=== PATIENT | female | born 1955 | race Caucasian/White ===

== ENCOUNTER 2016-06-25 10:20 | Observation (INO) | payer MEDICAID, MEDICARE ==
[2016-06-25] VITALS (7 sets, daily range): BP systolic 109–137; BP diastolic 66–75; PULSE 49–66; RESP 14–20; O2SAT 90–100
[~2016-06-25] VITALS: Ht 160 cm; Wt 73.0 kg
[~2016-06-25 10:20] MED LIST: ACET1TAB12 PO; ALBU2.5V4 INHALATION; ALBU8.5H2 INHALATION; ALBU90AE IH; ASPI-973 PO; CARI350T PO; CHOL200047 PO; DIAZ5TAB3 PO; LEVO100T6 PO; LIOT5TAB6 PO; NITR4.1S2 TRANSLING; PARO40TA47 PO
[2016-06-25 11:35] LABS: BASOPHILS % (AUTO) 0.6 % (0-3); MONOCYTES % (AUTO) 7.9 % (4-12); Mean Corpuscular Hemoglobin 32.4 pg (27.0-35.0); Mean Corpuscular Volume 95.5 fL (81-100); Platelet Count 349 bil/L (150-400)
--- NOTE | 2016-06-25 11:54 | DRSVH ---
PROCEDURE: X-RAY CHEST ONE VIEW, PORTABLE ([id number]) INDICATIONS: CHEST PAIN TECHNIQUE: One view of the chest was acquired. COMPARISON: [facility], CR, XR CHEST 2VW, 05/07/2016, 11:28. [facility], CR , XR CHEST 1VW (PORTABLE), 03/02/2015, 10:59. FINDINGS: Surgical changes and devices: Sternotomy wires, presumed prior CABG.. Lungs and pleura: No pleural effusions or pneumothorax. Lungs are clear. Mediastinum: Mediastinal contours appear normal. Heart size is normal. Bones and chest wall: No suspicious bony lesions. Overlying soft tissues appear unremarkable. IMPRESSION: Prior CABG, no trauma found, source of chest pain is not seen. Dictated by: Jamar Wei M.D. on 06/25/2016 at 11:52 Approved by: Jamar Wei M.D. on 06/25/2016 at 11:53
[2016-06-25 12:39] LABS: TROPONIN T 0.01 ug/L (0.0-0.011)
[2016-06-25 12:50] LABS: Magnesium 2.3 mg/dL (1.6-2.6)
--- NOTE | 2016-06-25 13:00 | ED.REPORT ---
HPI-Chest Pain 40 and Over Date of Service Jun 25, 2016 ED Provider: Aliya Hartman MD Patient is a 60 year old female who presents to the ED due to chest pain onset 0830 this morning. Patient was walking up the stairs when she began experiencing middle chest pain. The episode lasted 5 minutes with associated tingling in her fingertips, and excessive diaphoresis after the pain dissipated. She does not currently report any pain or symptoms. She had a double bypass in January of 2015 and was due to have a stress test in a few months. The stress test was moved forward to later this week due to intermittent chest pain over the past few weeks. The patient recently had bronchitis and used a steroid inhaler this morning to help with her cough. Her network and threat support specialist is Dr. Yunior Darling and Dr. Durand is her PCP. Nursing Notes Stated Complaint: CHEST PAIN Chief Complaint: Chest Pain Nursing Notes Reviewed: Yes Allergies: Coded Allergies: adhesive (Verified Allergy, Severe, PROBLEM W/ ADHESIVE ON SURGICAL DRAPE DURING 2010 SURGERY, 06/25/16) chlorhexidine (Unverified Allergy, Mild, 06/25/16) BURNING RASH Scheduled Aspirin (Aspirin) 81 Mg Tablet 162 MG PO DAILY Atorvastatin Calcium (Atorvastatin Calcium) 40 Mg Tablet 40 MG PO HS Fluticasone Propionate (Flovent HFA 220 mcg) 12 Gm Aer.w.adap 2 PUFFS INHALATION BID Levothyroxine (Levothyroxine) 100 Mcg Tablet 100 MCG PO DAILY Liothyronine Sodium (Cytomel) 5 Mcg Tablet 5 MCG PO DAILY Metoprolol Tartrate (Metoprolol Tartrate) 25 Mg Tablet 12.5 MG PO BID Paroxetine (Paxil) 40 Mg Tablet 40 MG PO DAILY Tiotropium [place] (Spiriva) 18 Mcg Cap.w.dev 1 CAPSULE INHALATION DAILY Scheduled PRN Acetaminophen/Codeine 300-30mg (Tylenol/Codeine #3) 1 Each Tablet 1 TABLET PO QID PRN PRN For Pain Albuterol HFA (Proair HFA) 8.5 Gm Hfa.aer.ad 2 PUFFS INHALATION QID PRN PRN For Shortness of Breath Cyclobenzaprine (Cyclobenzaprine) 10 Mg Tablet 10 MG PO TID PRN PRN For Spasm Diazepam (Diazepam) 5 Mg Tablet 5 MG PO BID PRN PRN For Anxiety Nitroglycerin SL (Nitroglycerin SL) 0.4 Mg Tab.subl 0.4 MG PO Q5MIN PRN PRN For Chest Pain General Time Seen by MD: 12:57 Chief Complaint Chest pain Hx Obtained From: Patient Sudden in Onset?: Yes Onset Occurred: 5 - 8 hours ago Symptom Duration: Since onset Location: : Chest left Radiation: : Arm left Severity: Current: Mild Associated with: Reports: Diaphoresis Recent Healthcare: Recent doctor visit, Previous surgery Similar Sx Previous: Yes Past Medical History Past Medical History Notes: DIAGNOSTIC CARDIAC CATHETERIZATION SERVICE DATE: 12/21/2014 ANGIOGRAPHIC FINDINGS: 1. Mild calcification is noted on fluoroscopy. 2. Left main: No significant disease. 3. LAD: Mild diffuse disease. In the mid segment there is a tight, 80% lesion. 4. Circumflex nondominant. Proximally at the takeoff of the first major obtuse marginal branch there is a haziness suggestive of heavy calcification. No critical stenosis is noted. 5. Epicardial, as well as septal, collaterals fill the right coronary artery. 6. Right coronary artery is totally occluded past the take-off of RV branch. 7. It appears to be a flush occlusion. 8. Left ventriculogram revealed overall preserved contractility with ejection fraction of around 70%. LVEDP was 18. There was no gradient upon pullback. Past Medical History Asthama Arthritis Depression Chronic back pain Past Surgical History Cardiac Bypass on February 05, 2015. [facility]. back Surgery. Right femoral stent. Reports: Tubal ligation Smoking History Current Every Day Smoker Social History Other Social History: Good social support, Local resident Ambulatory Status Independent Review of Systems Cardiovascular: Reports: Chest pain Skin: Reports Diaphoresis Neurologic: Reports: Numbness (and tingling in fingers ) Complete sys rev & neg: except as marked. Physical Exam Initial Vital Signs Vital Signs (First) Date Time Temp Pulse Resp B/P Pulse Ox O2 Delivery O2 Flow Rate FiO2 06/25/16 10:38 36.4 49 15 120/71 97 Room Air Initial VS: Reviewed Head / Eyes: Atraumatic, Normocephalic, PERRL ENT: Mucous membranes moist, Conjunctiva normal, No scleral icterus Neck: Supple, Non-tender, Full range of motion Extremities: Vascular intact, Neuro intact, No swelling, No tenderness Skin: Warm, Dry, No cyanosis Neurologic: Alert, Oriented, Nonfocal Psychiatric: Mood/affect normal, Behavior normal, Normal thought content General/Constitutional: Awake, Alert, No acute distress, Well appearing Wheezing / Retractions: Positive: Wheezing moderate course wheezing on both sides, more on right then left Cardiovascular: Heart rate NL, Regular rhythm, Heart sounds NL, No gallop, No murmurs, No rubs Abdomen: Atraumatic, Soft, Non-tender, No guarding, No rebound, BS normoactive Interpretation & Diagnostics Lab Results Interpretation Result Diagram: 06/25/16 1129 06/25/16 1129 Test 06/25/16 11:29 White Blood Count 7.1th/mm3 (3.8-10.1) Red Blood Count 3.98mil/mm3 (3.90-5.20) Hemoglobin 12.9g/dL (12.0-15.6) Hematocrit 38.0% (35.0-46.0) Mean Corpuscular Volume 95.5fL (81-100) Mean Corpuscular Hemoglobin 32.4pg (27.0-35.0) Mean Corpuscular Hemoglobin Concent 33.9% (32.0-37.0) Red Cell Distribution Width 18.4% (12.3-15.4) Platelet Count 349bil/L (150-400) Neutrophils (%) (Auto) 63.0% (40-74) Lymphocytes (%) (Auto) 25.8% (14-46) Monocytes (%) (Auto) 7.9% (4-12) Eosinophils (%) (Auto) 2.0% (0-5) Basophils (%) (Auto) 0.6% (0-3) Sodium Level 137mEq/L (134-144) Potassium Level 4.7mEq/L (3.5-5.2) Chloride Level 101mEq/L (97-108) Carbon Dioxide Level 22mmol/L (18-29) Blood Urea Nitrogen 10mg/dL (6-24) Creatinine 0.67mg/dL (0.57-1.00) Estimat Glomerular Filtration Rate 129mL/min (>59) Glucose Level 93mg/dL (60-99) Calcium Level 8.7mg/dL (8.5-10.1) Magnesium Level 2.3mg/dL (1.6-2.6) Total Bilirubin 0.5mg/dL (0.0-1.2) Aspartate Amino Transf (AST/SGOT) 26U/L (0-50) Alanine Aminotransferase (ALT/SGPT) 15U/L (0-32) Alkaline Phosphatase 62U/L (25-165) Troponin T 0.010ug/L (0.0-0.011) Total Protein 6.6g/dL (6.4-8.4) Albumin 3.9g/dL (3.4-5.0) ECG Interpretation Time: 11:01 Interpreted by: ED physician Normal ECG Interpretation: No acute ischemic changes Rhythm / Conduction: Bradycardia (49) Re-Eval/Medical Decision Med Decision/Clinical Course Increasing chest pain over the last 2 weeks in the setting of recent 2 vessel bypass. This morning with a severe episode associated with profuse diaphoresis. Initial labs are unremarkable and no evidence of STEMI. Discussed with cardiology. Opted for admission, cardiac rule out. if negative will need nuclear stress test tomorrow Time of Eval: 13:24 Patient Status: Condition unchanged Re-Evaluation/Progress Note: Patient informed of plan for admission. Patient requests anxiety medication. Pt understands and agrees with plan. All questions addressed. Consultation #1: Referral / Consult Name: Meghana Darling MD Consulted With: Cardiology Call Returned at: 13:23 Environmental Programs Specialist: Agrees with eval, Agrees with plan Note: Dr. Darling recommends admission as she rules out a nuclear stress test tomorrow. Consultation #2: Referral / Consult Name: Awais Anglin MD Consulted With: Hospitalist Call Returned at: 13:36 Environmental Programs Specialist: Agrees with eval, Agrees with plan Note: Case discussed. Counseled Regarding: Diagnosis, Lab results, Need for admission Discharge & Departure Disposition: ADMITTED TO HOSPITAL Discharge Condition All VS Reviewed: Yes Condition: Stable Referrals: Meghana Darling MD (PCP) Pepito Attestation Portion of this note were transcribed by Riccardo Rucker. I, Dr. Hartman, personally performed the history, physical exam, and medical decision-making: I reviewed and confirmed the accuracy for the information in the transcribed note. Signed by: pepito Levine, 06/25/16 1430 Aliya Hartman MD Jun 25, 2016 13:00 RICCARDO RUCKER Jun 25, 2016 13:31
[2016-06-25] MEDS ORDERED: HYDROcodone-APAP 5-325 mg Tablet PO ONE (13:30)
[2016-06-25] MEDS ORDERED: CYCL10TA9 PO (14:13)
[2016-06-25] MEDS ORDERED: FLUT12AE10 INHALATION (14:13)
[2016-06-25] MEDS ORDERED: ATOR40TA69 PO (14:13)
[2016-06-25] MEDS ORDERED: METO25TA6 PO (14:13)
[2016-06-25] MEDS ORDERED: TIOT18CA3 INHALATION (14:13)
[2016-06-25] MEDS ORDERED: NITR0.4T6 PO (14:15)
[2016-06-25] MEDS ORDERED: Ondansetron 2 mg/mL 2 mL Inj IVPUSH PRN (15:55)
[2016-06-25] MEDS ORDERED: Senna-Docusate 8.6-50 mg Tablet PO PRN (15:55)
[2016-06-25] MEDS ORDERED: Polyethylene Glycol (PEG) 17 Gm Powder PO PRN (15:55)
[2016-06-25] MEDS ORDERED: Alum-Mag Hydrox-Simeth 30 mL Suspension PO PRN (15:55)
[2016-06-25] MEDS: Sodium Chloride LOK Flush 10 mL Syringe IVFLUSH SCH (16:30)
[2016-06-25] MEDS: 0.9% Sodium Chloride 1,000 ML IV SCH (17:05)
--- NOTE | 2016-06-25 17:31 | PCM.HPMED ---
Subjective Date of Service Jun 25, 2016 Primary Provider: Admitting Physician: Awais Anglin MD Primary Care Physician: Meghana Darling MD Attending Physician: Awais Anglin MD Chief Complaint: Chest pain History of Present Illness: Patient is a 60 year old female with history of coronary artery disease s/p 2 vessel CABG who presented with chest pain onset 0830 this morning. Patient was walking up the stairs after walking her dog when she began experiencing middle chest pain. She described the episode as 5 minutes of dull pain with pressure in the center of her chest, nonradiating, with associated tingling in her fingertips, and excessive diaphoresis after the pain dissipated. She reports having shortness of breath on exertion, after walking about 1 block, as well as recent coughing and wheezing, as she recently had bronchitis and used a steroid inhaler this morning to help with her cough. She does not currently report any pain or symptoms on admission. She denies orthopnea or paroxysmal nocturnal dyspnea. She was due to have a stress test a few months from now, but states it was moved to today because of her chest pain. She went to the stress test, but upon arriving she described her chest pain to the staff and was sent to the ED. The patient Her oil well shooter is Dr. Yunior Darling and Dr. Durand is her PCP. In the ED, pulse was 49, other vitals were normal. CBC and CMP were normal. Troponin was normal. CXR was negative for acute process. EKG showed sinus bradycardia. Review of Systems: Comprehensive review of systems conducted and was negative except for the pertinent positives listed above. Allergies Coded Allergies: adhesive (Verified Allergy, Severe, PROBLEM W/ ADHESIVE ON SURGICAL DRAPE DURING 2010 SURGERY, 06/25/16) chlorhexidine (Unverified Allergy, Mild, 06/25/16) BURNING RASH Home Medications APAP/Codeine 300/30 mg PO QID PRN Albuterol inhaler Aspirin 162 mg daily Atorvastatin 40 mg qhs Cyclobenzaprine 10 mg TID PRN Diazepam 5 mg BID PRN Flovent inhaler Levothyroxine 100 mcg daily Liothyronine 5 mcg daily Metoprolol tartrate 12.5 mg BID Nitroglycerin 0.4 mg SL q5min PRN Paroxetine 40 mg daily Spiriva inhaler PMH Coronary artery disease with 2 vessel CABG COPD Arthritis Depression Chronic back pain Surgical History 2 vessel coronary bypass on February 05, 2015. [place]. Multiple back surgeries Right femoral stent. Tubal ligation Family History Mother - of metastatic brain cancer Father - of esophageal cancer Grandfather - Diabetes mellitus No known family history of CAD, HI, stroke, CHF Social History Hx Alcohol Use: No (RARE) Hx Substance Use: No Hx Tobacco Use: No Smoking Status: Former Smoker (Quit 1 month ago) Exam Vital Signs Vital Sign - Last Date Time Temp Pulse Resp B/P Pulse Ox O2 Delivery O2 Flow Rate FiO2 06/25/16 15:39 52 06/25/16 15:38 36.8 16 137/71 97 Room Air Exam General: Alert, Oriented X3, Cooperative, No Acute Distress Head: Normocephalic, atraumatic. External ears normal. Eyes: PERRLA, EOMI. Anicteric sclerae. Mouth: Mouth Normal, Mucous Membranes Moist/[place] Neck: Neck supple with full range of motion. Chest & Lungs: Wheezes and rhonchi bilaterally, R>L Cardiovascular: Regular Rate/Rhythm, Normal S1, Normal S2, No Murmurs/Rubs/ Gallops Abdomen: Non-tender, Non-distended, No masses, Normoactive bowel tones, Soft Musculoskeletal: Normal Range of Motion Extremities: No cyanosis/clubbing/edema bilaterally Neurological: Grossly Neurologically Intact, Normal Speech Lab and Diagnostics Result Diagram: 06/25/16 1129 06/25/16 1129 Assessment & Plan Patient is a 60 year old female with history of coronary artery disease s/p 2 vessel CABG who presented with chest pain onset 0830 this morning. 1. Acute chest pain. Present on admission. - Pt reports acute chest pain on exertion, as well as dyspnea on exertion. Given her strong medical history for coronary artery disease, suspicion is high for angina. CXR was negative for pneumonia, and her history is more suspicious for cardiac chest pain rather than pleuritic chest pain. Troponin negative x1. - Trend troponin x3 overnight. - Monitor on telemetry - Continue home ASA, metoprolol, atorvastatin. - Plan for MIBI tomorrow if troponin negative and no events overnight. - NPO after midnight. - Nitroglycerin SL PRN chest pain 2. Acute bronchitis. Present on admission. - Pt states she has been getting over an episode of acute bronchitis, having completed a course of prednisone and a Z-pack. She has a stated history of mild COPD, diagnosed by PFTs in [place]. She is noted to still have coughing and wheezing, and wheezes were noted on exam. - Albuterol neb q6h PRN 3. Depression, chronic. - Continue home diazepam and paroxetine 4. Hypothyroidism, chronic. - Continue home levothyroxine and liothyronine 5. Chronic back pain - Continue home APAP/Codeine, cyclobenzaprine - Bowel regimen as needed - Antiemetic as needed OBSERVATION: Patient is admitted under observation status with expected length of stay less than 2 midnights due to severity of presenting symptoms, risk of adverse event, and complexity of treatment plan. Attending Statement The patient was seen and examined together with Dr. Bolanos on 06/25/2016 and I agree with the history, exam and plan as outlined in the note above. . Alberto Bolanos Jun 25, 2016 16:06 Awais Anglin MD Jun 26, 2016 07:45
--- NOTE | 2016-06-25 19:23 | NUR ---
Arrived to Unit Pt arrived to PCC room 2004 at ~1520, VSS on RA, denied pain, tele sinus monica in the 50s, planning for stress test in am per resident team MD, Pt made NPO after midnight with a no caffeine diet, Pt made aware, oncoming NOC RN made aware.
[2016-06-25] MEDS: Codeine-APAP 30-300 mg Tablet PO PRN (23:31)
[2016-06-26] VITALS (7 sets, daily range): BP systolic 107–130; BP diastolic 60–70; PULSE 47–61; RESP 12–20; O2SAT 90–99
[2016-06-26] MEDS: Sodium Chloride LOK Flush 10 mL Syringe IVFLUSH SCH ×3 (00:30→15:57)
[2016-06-26 03:02] LABS: BASOPHILS % (AUTO) 0.3 % (0-3); EOSINOPHILS % (AUTO) 3.5 % (0-5); MONOCYTES % (AUTO) 8.3 % (4-12); Mean Corpuscular Hemoglobin 31.7 pg (27.0-35.0); Mean Corpuscular Volume 95.4 fL (81-100); NEUTROPHILS % (AUTO) 46.9 % (40-74); Platelet Count 300 bil/L (150-400)
[2016-06-26] MEDS: 0.9% Sodium Chloride 1,000 ML IV SCH ×2 (05:00→16:11)
--- NOTE | 2016-06-26 05:01 | NUR ---
Pain Pt has chronic back pain and stated this pain at 6/10 x1 this shift. Administered 1 table Flexeril as well as 1 tab Tylenol with codeine and effective. Pt had no more episodes of CP and has been NPO since 0000 for stress test. VSS and Tele SB/R50's 60's.
[2016-06-26] MEDS ORDERED: Albuterol 1.25 mg/3 mL Inhalation Solution NEB PRN (07:55)
[2016-06-26] MEDS ORDERED: PARoxetine 20 mg Tablet PO SCH (08:30)
--- NOTE | 2016-06-26 10:21 | NUR ---
Case Management: YOLY delivered and explained. Signed original placed in chart. Copy left at bedside. Debi Brown RN
--- NOTE | 2016-06-26 10:24 | NUR ---
Social Work: Initial Assessment D: Per EMR review, pt is a 60 year old female admitted for chest pain. pt is Medicare with [employer] supplement. PCP is Dr. Richard Durand MD. NOK Is Debbi Britt, dtr, . Advanced directives completed but not on file- INFORMATICS APPLICATION ANALYST requested pt have family provide copy. Readmit score is moderate, 3/8. INFORMATICS APPLICATION ANALYST met with pt at bedside. Sw role and contact information provided. See initial assessment. Pt lives in an apartment with her son and grandson in [place]. Pt is I with ADLs and uses no DME. Pt has 16 steps to enter her home. She reports not issues navigating stairs until yesterday when she experienced chest pain. Pt states she has never had HH or SKilled rehab. Pt denies any anticipated d/c needs and states she has been I during admission. Pt discussed in am rounds. Anticipate pt may be ready for discharge home today pending stress test. A: pt who is I at baseline. P: Anticipate pt to discharge home via POV (son or daughter) once medically stable; INFORMATICS APPLICATION ANALYST to continue to follow. CORAZON Darden Addendum: 06/26/16 at 1028 by ELISA FERRER Amended: Links added.
[2016-06-26] MEDS: Codeine-APAP 30-300 mg Tablet PO PRN (11:38)
--- NOTE | 2016-06-26 16:25 | DRSVH ---
PROCEDURE: 1 DAY PHARMACOLOGICAL STRESS TEST Rest and pharmacological stress myocardial perfusion SPECT with gated imaging and ejection fraction RADIOPHARMACEUTICAL: 8.70 mCi Tc-99m tetrafosmin IV at rest and 25.6 mCi Tc-99m tetrafosmin IV at pea k effect of pharmacological stress. A gut-yjz-nlrylosf was performed. INDICATIONS: CHEST PAIN/DYSPNEA ON EXERTION. TECHNIQUE: Radiopharmaceutical was injected at peak stress test, and also at rest. SPECT images wer e obtained. SPECT myocardial perfusion images were displayed in short axis, horizontal long axis, an d vertical long axis views. Gated images were reviewed using [employer] software. COMPARISON: None. CARDIAC STRESS: A pharmacologic stress test was performed under the supervision of an attending staff, using an infus ion of Regadenoson. Hemodynamic data: There is normal blood pressure and heart rate response to pharmacologic stress. Symptoms: The patient denied anginal chest pain. Aminophylline: 100 mg IV EKG: No diagnostic changes of ischemia; no ectopy. FINDINGS: Raw data: There is good myocardial uptake of radiotracer. No significant motion artifacts. Left ventricle function: Gated images demonstrate normal left ventricular wall thickening. No segme ntal wall motion abnormalities. Left ventricle resting end diastolic volume is 70 mL. Left ventricl e stress ejection fraction is >70% ; normal range is above 45%. Myocardial perfusion: There is a small perfusion defect with mild intensity located along the basal inferior wall and basal inferoseptal wall. There is also another small perfusion defect with mild int ensity along the distal lateral wall. Both of these perfusion defects improve on the supine resting i mages. On prone stress images the perfusion defects do not improve or resolve. IMPRESSION: This is a mildly abnormal myocardial perfusion study. Evidence for mild reversibility or ischemia located along the basal inferior and distal lateral wall. Normal LV ejection fraction and no rmal LV wall motion. Pharmacological stress EKG is nondiagnostic for any ischemia. Clinical correlati on is recommended to see if coronary/bypass angiogram is required. Dictated by: Adam Flores Jr., M.D. on 06/26/2016 at 16:10 Approved by: Adam Flores Jr., M.D. on 06/26/2016 at 16:23
[2016-06-26] MEDS ORDERED: ISOS30TA4 PO (17:41)
--- NOTE | 2016-06-26 18:17 | PCM.DIMED ---
AMINATA BRIAN DO 06/26/16 1811: Discharge Instructions Date of Service Jun 26, 2016 Dates of Hospitalization Jun 25, 2016 at 13:55 Discharge Diagnosis Discharge Diagnosis 1. Unstable angina, present on admission. Resolved. 2. Acute bronchitis. Present on admission. 3. Depression, chronic. 4. Hypothyroidism, chronic. 5. Chronic back pain Medication Instructions New Medications: Isosorbide mononitrate 30 mg PO daily. Diet Heart Healthy Patient Instructions Follow up with your paper gluing operator Dr. Darling to discuss treatment options regarding recent hospital stay and stress test. - Stress test: This is a mildly abnormal myocardial perfusion study. Evidence for mild reversibility or ischemia located along the basal inferior and distal lateral wall. Normal LV ejection fraction and normal LV wall motion. Pharmacological stress EKG is nondiagnostic for any ischemia. Clinical correlation is recommended to see if coronary/bypass angiogram is required. - Continue to stop smoking. Follow-up Provider: Meghana Darling MD Follow-up with PCP in: 1 week Awais Anglin MD 06/29/16 0818: Discharge Instructions Attending's Statement The patient was seen and examined together with Dr. Brian on 06/26/2016 and I agree with the history, exam and plan as outlined in the note above. . AMINATA BRIAN DO Jun 26, 2016 18:11 Awais Anglin MD Jun 29, 2016 08:18
--- NOTE | 2016-06-26 19:21 | NUR ---
Discharge Pt discharged today after results from stress test reviewed by hospitalist and cardiology teams. Pt was then taken on a brisk walk for 4-5 laps around unit prior to discharge. Pt reported feeling as if she had exerted, but denied chest pain, MD made aware and discharge finalized. Pt discharged to home with family at ~1830. Pt given discharge educational materials on new prescription and chest pain. Pt's IV access D/C'd and intact. Pt instructed to f/u with cardiology, informed that Dr. Darling's office would be contacting her per hospitalist. Pt verbalized understanding of all discharge instructions. All belongings accompanied Pt at time of discharge.
--- NOTE | 2016-07-05 18:07 | PCM.DC.MED ---
Discharge Summary Date of Service Jul 05, 2016 Dates of Hospitalization Date of Hospital Admission Jun 25, 2016 at 13:55 Date of Discharge: Jul 24, 2016 Providers: Admitting Physician: Awais Anglin MD Primary Care Physician: Meghana Darling MD Attending Physician: Awais Anglin MD Diagnosis at Time of Discharge Diagnosis at Time of Discharge 1. Unstable angina, present on admission. Resolved. 2. Acute bronchitis. Present on admission. 3. Depression, chronic. 4. Hypothyroidism, chronic. 5. Chronic back pain Brief History Patient is a 60 year old female with history of coronary artery disease s/p 2 vessel CABG who presented with chest pain onset 0830 this morning. Patient was walking up the stairs after walking her dog when she began experiencing middle chest pain. She described the episode as 5 minutes of dull pain with pressure in the center of her chest, nonradiating, with associated tingling in her fingertips, and excessive diaphoresis after the pain dissipated. She reports having shortness of breath on exertion, after walking about 1 block, as well as recent coughing and wheezing, as she recently had bronchitis and used a steroid inhaler this morning to help with her cough. She does not currently report any pain or symptoms on admission. She denies orthopnea or paroxysmal nocturnal dyspnea. She was due to have a stress test a few months from now, but states it was moved to today because of her chest pain. She went to the stress test, but upon arriving she described her chest pain to the staff and was sent to the ED. The patient Her superintendent nonselling is Dr. Yunior Darling and Dr. Durand is her PCP. In the ED, pulse was 49, other vitals were normal. CBC and CMP were normal. Troponin was normal. CXR was negative for acute process. EKG showed sinus bradycardia. Hospital Course Patient is a 60 year old female with history of coronary artery disease s/p 2 vessel CABG who presented with chest pain onset 0830 this morning. 1. Acute chest pain. Present on admission. - Pt reports acute chest pain on exertion, as well as dyspnea on exertion. Given her strong medical history for coronary artery disease, suspicion is high for angina. CXR was negative for pneumonia, and her history is more suspicious for cardiac chest pain rather than pleuritic chest pain. Troponin negative x1. - Trend troponin x3 overnight. - Monitor on telemetry - Continue home ASA, metoprolol, atorvastatin. - Nitroglycerin SL PRN chest pain - Stress test - Evidence for mild reversibility or ischemia located along the basal inferior and distal lateral wall. Normal LV ejection fraction and normal LV wall motion. Pharmacological stress EKG is nondiagnostic for any ischemia. - Medical management as outpatient and close follow up with [employer] Lift R[employer]. 2. Acute bronchitis. Present on admission. - Pt states she has been getting over an episode of acute bronchitis, having completed a course of prednisone and a Z-pack. She has a stated history of mild COPD, diagnosed by PFTs in [place]. She is noted to still have coughing and wheezing, and wheezes were noted on exam. - Albuterol neb q6h PRN 3. Depression, chronic. - Continue home diazepam and paroxetine 4. Hypothyroidism, chronic. - Continue home levothyroxine and liothyronine 5. Chronic back pain - Continue home APAP/Codeine, cyclobenzaprine - Bowel regimen as needed - Antiemetic as needed OBSERVATION: Patient was admitted under observation status with expected length of stay less than 2 midnights. Will be Discharged today. Exam Exam Patient is a 60 year old female with history of coronary artery disease s/p 2 vessel CABG who presented with chest pain onset 0830 this morning. Patient was walking up the stairs after walking her dog when she began experiencing middle chest pain. She described the episode as 5 minutes of dull pain with pressure in the center of her chest, nonradiating, with associated tingling in her fingertips, and excessive diaphoresis after the pain dissipated. She reports having shortness of breath on exertion, after General: Alert, Oriented X3, Cooperative, No Acute Distress Head: Normocephalic, atraumatic. External ears normal. Eyes: PERRLA, EOMI. Anicteric sclerae. Mouth: Mouth Normal, Mucous Membranes Moist/[place] Neck: Neck supple with full range of motion. Chest & Lungs: Wheezes and rhonchi bilaterally, R>L Cardiovascular: Regular Rate/Rhythm, Normal S1, Normal S2, No Murmurs/Rubs/ Gallops Abdomen: Non-tender, Non-distended, No masses, Normoactive bowel tones, Soft Musculoskeletal: Normal Range of Motion Extremities: No cyanosis/clubbing/edema bilaterally Neurological: Grossly Neurologically Intact, Normal Speech Test 06/25/16 11:29 2/23/17 02:50 06/26/16 08:16 Magnesium Level 2.3mg/dL (1.6-2.6) Total Bilirubin 0.5mg/dL (0.0-1.2) Aspartate Amino Transf (AST/SGOT) 26U/L (0-50) Alanine Aminotransferase (ALT/SGPT) 15U/L (0-32) Alkaline Phosphatase 62U/L (25-165) Total Protein 6.6g/dL (6.4-8.4) Albumin 3.9g/dL (3.4-5.0) White Blood Count 6.5th/mm3 (3.8-10.1) Red Blood Count 3.66mil/mm3 (3.90-5.20) Hemoglobin 11.6g/dL (12.0-15.6) Hematocrit 34.9% (35.0-46.0) Mean Corpuscular Volume 95.4fL (81-100) Mean Corpuscular Hemoglobin 31.7pg (27.0-35.0) Mean Corpuscular Hemoglobin Concent 33.2% (32.0-37.0) Red Cell Distribution Width 18.5% (12.3-15.4) Platelet Count 300bil/L (150-400) Neutrophils (%) (Auto) 46.9% (40-74) Lymphocytes (%) (Auto) 40.7% (14-46) Monocytes (%) (Auto) 8.3% (4-12) Eosinophils (%) (Auto) 3.5% (0-5) Basophils (%) (Auto) 0.3% (0-3) Sodium Level 141mEq/L (134-144) Potassium Level 4.6mEq/L (3.5-5.2) Chloride Level 106mEq/L (97-108) Carbon Dioxide Level 26mmol/L (18-29) Blood Urea Nitrogen 13mg/dL (6-24) Creatinine 0.85mg/dL (0.57-1.00) Estimat Glomerular Filtration Rate 98mL/min (>59) Glucose Level 102mg/dL (60-99) Calcium Level 8.5mg/dL (8.5-10.1) Troponin T < 0.010ug/L (0.0-0.011) Discharge Medications Discharge Medications Aspirin (Aspirin) 81 Mg Tablet 162 MG PO DAILY (Reported) Atorvastatin Calcium (Atorvastatin Calcium) 40 Mg Tablet 40 MG PO HS (Reported) Fluticasone Propionate (Flovent HFA 220 mcg) 12 Gm Aer.w.adap 2 PUFFS INHALATION BID (Reported) Isosorbide MN ER (Isosorbide MN ER) 30 Mg Tab.er.24h 30 MG PO DAILY Prescribed by: AMINATA BRIAN DO Levothyroxine (Levothyroxine) 100 Mcg Tablet 100 MCG PO DAILY (Reported) Liothyronine Sodium (Cytomel) 5 Mcg Tablet 5 MCG PO DAILY (Reported) Metoprolol Tartrate (Metoprolol Tartrate) 25 Mg Tablet 12.5 MG PO BID (Reported ) Paroxetine (Paxil) 40 Mg Tablet 40 MG PO DAILY (Reported) Tiotropium [place] (Spiriva) 18 Mcg Cap.w.dev 1 CAPSULE INHALATION DAILY ( Reported) As needed Acetaminophen/Codeine 300-30mg (Tylenol/Codeine #3) 1 Each Tablet 1 TABLET PO QID PRN PRN For Pain (Reported) Albuterol HFA (Proair HFA) 8.5 Gm Hfa.aer.ad 2 PUFFS INHALATION QID PRN PRN For Shortness of Breath (Reported) Cyclobenzaprine (Cyclobenzaprine) 10 Mg Tablet 10 MG PO TID PRN PRN For Spasm ( Reported) Diazepam (Diazepam) 5 Mg Tablet 5 MG PO BID PRN PRN For Anxiety (Reported) Nitroglycerin SL (Nitroglycerin SL) 0.4 Mg Tab.subl 0.4 MG PO Q5MIN PRN PRN For Chest Pain (Reported) Additional med instructions New Medications: Isosorbide mononitrate 30 mg PO daily. Followup Plan Discharge Diet: Heart Healthy Patient Instructions Follow up with your superintendent nonselling Dr. Darling to discuss treatment options regarding recent hospital stay and stress test. - Stress test: This is a mildly abnormal myocardial perfusion study. Evidence for mild reversibility or ischemia located along the basal inferior and distal lateral wall. Normal LV ejection fraction and normal LV wall motion. Pharmacological stress EKG is nondiagnostic for any ischemia. Clinical correlation is recommended to see if coronary/bypass angiogram is required. - Continue to stop smoking. Follow-up Provider: Meghana Darling MD Follow-up with PCP in: 1 week Attending Statement The patient was seen and examined together with Dr. Brian on 06/26/2016 and I agree with the history, exam and plan as outlined in the note above. . AMINATA BRIAN DO Jul 05, 2016 18:06 Awais Anglin MD Jul 12, 2016 15:53
[2016-09-25] MEDS ORDERED: ISOS60TA2 PO (16:18)
[2016-09-25] MEDS ORDERED: RANO500T3 PO (16:18)
[2016-09-25] MEDS ORDERED: ROSU40TA PO (16:18)
== END 2016-06-26 18:30 | disposition home or self-care (01) ==
LOC: SED 10:20 → PCC 13:55
PROVIDERS: ADMIT Internal Medicine; ATTEND Internal Medicine
DX: R07.9 Chest pain, unspecified (principal); J20.9 Acute bronchitis, unspecified; F32.9 Major depressive disorder, single episode, unspecified; E03.9 Hypothyroidism, unspecified; M54.89 Other dorsalgia; I25.10 Atherosclerotic heart disease of native coronary artery without angina pectoris; J44.9 Chronic obstructive pulmonary disease, unspecified; J45.909 Unspecified asthma, uncomplicated; F17.210 Nicotine dependence, cigarettes, uncomplicated; Z95.1 Presence of aortocoronary bypass graft; Z79.82 Long term (current) use of aspirin; Z88.8 Allergy status to other drugs, medicaments and biological substances
CPT/HCPCS: 36415; 71010; 78452; 80048; 80053; 83735; 84484; 85025; 93005; 93017; 94664; 99285; A9502; G0378; J0280; J2785; J7030; J7613

== ENCOUNTER 2016-08-07 14:48 | Observation (INO) | payer MEDICARE ==
[~2016-08-07] VITALS: Ht 160 cm; Wt 75.1 kg
[~2016-08-07 14:48] MED LIST changes: -ALBU2.5V4 INHALATION; -ALBU90AE IH; +ATOR40TA69 PO; -CARI350T PO; -CHOL200047 PO; +CYCL10TA9 PO; +FLUT12AE10 INHALATION; +ISOS30TA4 PO; +METO25TA6 PO; +NITR0.4T6 PO; -NITR4.1S2 TRANSLING; +TIOT18CA3 INHALATION
[2016-08-07 15:00] VITALS: BP 153/71; PULSE 46; RESP 16; O2SAT 100
--- NOTE | 2016-08-07 15:42 | DRSVH ---
PROCEDURE: X-RAY CHEST ONE VIEW, PORTABLE ([id number]) INDICATIONS: chest pain TECHNIQUE: One view of the chest was acquired. COMPARISON: [facility], CR, XR CHEST 1VW (PORTABLE), 06/25/2016, 10:58. [facility], CR, XR CHEST 2VW, 05/07/2016, 11:28. FINDINGS: Surgical changes and devices: Postoperative changes related to prior median sternotomy are present. Lungs and pleura: No pleural effusions or pneumothorax. Lungs are clear. Mediastinum: Mediastinal contours appear normal. Heart size is normal. Bones and chest wall: No suspicious bony lesions. Overlying soft tissues appear unremarkable. IMPRESSION: Stable chest. No overt heart failure or definite pneumonia. Dictated by: Hector Mcclure M.D. on 08/07/2016 at 14:40 Approved by: Hector Mcclure M.D. on 08/07/2016 at 14:41
--- NOTE | 2016-08-07 15:44 | ED.REPORT ---
HPI-Chest Pain 40 and Over Date of Service Aug 07, 2016 ED Provider: Horacio Cao MD Patient is a 60 year old female with history of coronary artery disease s/p 2 vessel CABG who presents to the ER sent in by physician due to intermittent chest pain for a month. She states that she has been woken from sleep the last 3 night with chest squeezing/tightness that lasts approximately 5-10 minutes. Associated with the chest pain she reports paresthesias to bilat arms and radiation of pain to the neck/jaw. Additional symptoms include nausea, vomiting and diaphoresis. Her last episode of chest pain was at 10:40 this AM. She has no pain or any other symptoms currently. Pt denies acid reflux and pleuritic pain. Pt was seen for chest pain with exertion 2 months ago. She states that her symptoms have changes because her pain is now present at rest. Pharmacological Stress Test 06/26/16 IMPRESSION: This is a mildly abnormal myocardial perfusion study. Evidence for mild reversibility or ischemia located along the basal inferior and distal lateral wall. Normal LV ejection fraction and normal LV wall motion. Pharmacological stress EKG is nondiagnostic for any ischemia. Clinical correlation is recommended to see if coronary/bypass angiogram is required. Nursing Notes Stated Complaint: HEART PAIN Chief Complaint: Chest Pain Nursing Notes Reviewed: Yes Allergies: Coded Allergies: adhesive (Verified Allergy, Severe, PROBLEM W/ ADHESIVE ON SURGICAL DRAPE DURING 2010 SURGERY, 06/25/16) chlorhexidine (Unverified Allergy, Severe, BURNING RASH, 08/07/16) BURNING RASH Scheduled Aspirin (Aspirin) 81 Mg Tablet 162 MG PO QAM Atorvastatin Calcium (Atorvastatin Calcium) 40 Mg Tablet 80 MG PO HS Fluticasone Propionate (Flovent HFA 220 mcg) 12 Gm Aer.w.adap 2 PUFFS INHALATION BID Isosorbide MN ER (Isosorbide MN ER) 60 Mg Tab.er.24h 60 MG PO QAM Levothyroxine (Levothyroxine) 100 Mcg Tablet 100 MCG PO QAM Liothyronine Sodium (Cytomel) 5 Mcg Tablet 5 MCG PO QAM Metoprolol Tartrate (Metoprolol Tartrate) 25 Mg Tablet 12.5 MG PO BID Paroxetine (Paxil) 40 Mg Tablet 40 MG PO QAM Tiotropium [place] (Spiriva) 18 Mcg Cap.w.dev 1 CAPSULE INHALATION QAM Scheduled PRN Acetaminophen/Codeine 300-30mg (Tylenol/Codeine #3) 1 Each Tablet 1 TABLET PO QID PRN PRN For Pain Albuterol HFA (Proair HFA) 8.5 Gm Hfa.aer.ad 2 PUFFS INHALATION QID PRN PRN For Shortness of Breath Cyclobenzaprine (Cyclobenzaprine) 10 Mg Tablet 10 MG PO TID PRN PRN For Spasm Diazepam (Diazepam) 5 Mg Tablet 5 MG PO BID PRN PRN For Anxiety Nitroglycerin SL (Nitroglycerin SL) 0.4 Mg Tab.subl 0.4 MG PO Q5MIN PRN PRN For Chest Pain General Time Seen by MD: 15:20 Chief Complaint Chest pain Hx Obtained From: Patient Arrived By: Walk-in Sudden in Onset?: Yes Onset Occurred: 5 - 8 hours ago Symptom Duration: Intermittent Location: : Substernal Quality: Painful Radiation: : Jaw: Neck Severity: Current: No pain currently Severity: Maximum: Moderate Associated with: Reports: Diaphoresis, Nausea, Shortness of Breath, Denies: Vomiting Pertinent Negative: Exacerbated by nothing, Relieved by nothing Recent Healthcare: Recent doctor visit Similar Sx Previous: Yes Risk Factors )( CAD Risk Stratification Risk factors reviewed )( TAD Risk Stratification Risk factors reviewed )( PE Risk Stratification Risk factors reviewed Past Medical History Past Medical History Notes: DIAGNOSTIC CARDIAC CATHETERIZATION SERVICE DATE: 12/21/2014 ANGIOGRAPHIC FINDINGS: 1. Mild calcification is noted on fluoroscopy. 2. Left main: No significant disease. 3. LAD: Mild diffuse disease. In the mid segment there is a tight, 80% lesion. 4. Circumflex nondominant. Proximally at the takeoff of the first major obtuse marginal branch there is a haziness suggestive of heavy calcification. No critical stenosis is noted. 5. Epicardial, as well as septal, collaterals fill the right coronary artery. 6. Right coronary artery is totally occluded past the take-off of RV branch. 7. It appears to be a flush occlusion. 8. Left ventriculogram revealed overall preserved contractility with ejection fraction of around 70%. LVEDP was 18. There was no gradient upon pullback. Past Medical History Asthama Arthritis Depression Chronic back pain Past Surgical History Cardiac double Bypass on February 05, 2015. Lucas Suarez. back Surgery. Right femoral stent. Iatrogenic injury to femoral artery. Reports: Tubal ligation Smoking History Former Smoker Social History Other Social History: Good social support, Local resident Ambulatory Status Independent Review of Systems Basic Review of Systems Eyes: Vision NL, No discharge ENT: Hearing NL, No pain, No nasal congestion, No pharyngeal pain Constitutional: Denies: Fever Respiratory: Denies: Shortness of breath Cardiovascular: Reports: Chest pain GI: Reports: Nausea, Vomiting Skin: Reports Diaphoresis Neurologic: Reports: Numbness (paresthesias to arms) Complete sys rev & neg: except as marked. Physical Exam Initial Vital Signs Vital Signs (First) Date Time Temp Pulse Resp B/P Pulse Ox O2 Delivery O2 Flow Rate FiO2 08/07/16 15:00 36.6 46 16 153/71 100 Room Air Initial VS: Reviewed Head / Eyes: Atraumatic, Normocephalic, PERRL ENT: Mucous membranes moist, Conjunctiva normal, No scleral icterus Neck: Full range of motion Extremities: Vascular intact (Well healed surgical scar about L forearm, all other extremities unremarkable), Neuro intact, No swelling (at calves), No tenderness (at calves) Skin: Warm, Dry, No cyanosis Neurologic: Alert, Oriented, Nonfocal Psychiatric: Mood/affect normal, Behavior normal, Normal thought content General/Constitutional: Awake, Alert, No acute distress Comfortable Respiratory / Chest: Breath sounds NL, Breath sounds = bilat, No respiratory distress, No rales, No rhonchi, No wheezing, No stridor, No chest tenderness Well healed sternotomy scar to the anterior chest wall Cardiovascular: Heart rate NL, Regular rhythm, Heart sounds NL, No gallop, No murmurs, No rubs, Cap refill not delayed, Peripheral circulation NL, Pulses = bilaterally Abdomen: Soft, Non-tender, No distention Interpretation & Diagnostics Lab Results Interpretation Result Diagram: 08/07/16 1538 08/07/16 1538 Test 08/07/16 15:38 08/07/16 16:52 White Blood Count 6.1th/mm3 (3.8-10.1) Red Blood Count 3.64mil/mm3 (3.90-5.20) Hemoglobin 11.4g/dL (12.0-15.6) Hematocrit 34.4% (35.0-46.0) Mean Corpuscular Volume 94.5fL (81-100) Mean Corpuscular Hemoglobin 31.3pg (27.0-35.0) Mean Corpuscular Hemoglobin Concent 33.1% (32.0-37.0) Red Cell Distribution Width 18.7% (12.3-15.4) Platelet Count 359bil/L (150-400) Neutrophils (%) (Auto) 45.3% (40-74) Lymphocytes (%) (Auto) 42.6% (14-46) Monocytes (%) (Auto) 6.9% (4-12) Eosinophils (%) (Auto) 3.9% (0-5) Basophils (%) (Auto) 1.0% (0-3) Sodium Level 138mEq/L (134-144) Potassium Level 4.4mEq/L (3.5-5.2) Chloride Level 102mEq/L (97-108) Carbon Dioxide Level 22mmol/L (18-29) Blood Urea Nitrogen 11mg/dL (6-24) Creatinine 0.75mg/dL (0.57-1.00) Estimat Glomerular Filtration Rate 113mL/min (>59) Glucose Level 95mg/dL (60-99) Calcium Level 9.4mg/dL (8.5-10.1) Magnesium Level 2.2mg/dL (1.6-2.6) Total Bilirubin 0.7mg/dL (0.0-1.2) Aspartate Amino Transf (AST/SGOT) 31U/L (0-50) Alanine Aminotransferase (ALT/SGPT) 28U/L (0-32) Alkaline Phosphatase 72U/L (25-165) Troponin T < 0.010ug/L (0.0-0.011) Total Protein 7.5g/dL (6.4-8.4) Albumin 4.0g/dL (3.4-5.0) Hold Aranda Top Tube Received (Received) Hold Urine Received (Received) General Lab Results Interp 1: Labs reviewed ECG Interpretation ECG Interpretation: Sinus bradycardia with 46 BPM. nl axis, nl intervals. no ST segment changes. When compared to prior 06/26/16 pt remains monica and there are no acute changes present Time: 15:10 Interpreted by: ED physician X-Ray Chest Interpretation Chest Xray Interpretation: IMPRESSION: Stable chest. No overt heart failure or definite pneumonia. Dictated by: Hector Mcclure M.D. on 08/07/2016 at 14:40 View: Portable, 1 view Interpretation / Wet Read by: Interpret - Radiologist Re-Eval/Medical Decision Med Decision/Clinical Course Patient is a 60-year-old female presenting to the emergency department due to multiple episodes of chest pain that are occurring at rest and waking her from sleep. She has extensive cardiac history including 2 vessel CABG and coronary artery disease. Upon arrival to the emergency room the patient is afebrile, hemodynamically stable and in no apparent distress. She has taken 2 baby aspirins prior to arrival. ECG- Sinus bradycardia with 46 BPM. nl axis, nl intervals. no ST segment changes. When compared to prior 06/26/16 pt remains monica and there are no acute changes present CXR: Obtained, reviewed and interpreted by myself shows no evidence of infiltrates, effusions or pneumothorax. Cardiac and mediastinal silhouette normal. No bony or soft tissue abnormalities. CBC unremarkable Troponin negative CMP unremarkable Given 162mg ASA Pharmacological Stress Test 06/26/16 - IMPRESSION: This is a mildly abnormal myocardial perfusion study. Evidence for mild reversibility or ischemia located along the basal inferior and distal lateral wall. Normal LV ejection fraction and normal LV wall motion. Pharmacological stress EKG is nondiagnostic for any ischemia. Clinical correlation is recommended to see if coronary/bypass angiogram is required. The patient is at this time on convincing for acute pulmonary embolism or aortic dissection. No evidence of pneumonia or pneumothorax. She does have pretty extensive cardiac history and presentation is somewhat concerning for unstable angina though at this time initial screening EKG and troponin are reassuring. She is now received a total 324 mg of aspirin and remained chest pain-free. Discussed with her department secretary Dr. Darling who recommends admission to the hospitalist service on the telemetry monitoring, serial troponins and exercise stress test in the morning. Does not recommend heparinization at this time. Discussed with accepting hospitalist and transferred in stable condition. Time of Eval: 17:00 Re-Evaluation/Progress Note: Updated of labs, imaging and ECG. Recommended admission. Pt understands and agrees with plan. All questions addressed. Consultation #1: Referral / Consult Name: Meghana Darling MD Consulted With: Cardiology Call Returned at: 16:59 Note: Recommends admission for stress test. Consultation #2: Referral / Consult Name: Vanessa Love DO Consulted With: Hospitalist Assembly Press Operator: Will see patient, Agrees with eval, Agrees with plan, Accepts admit Counseled Regarding: Diagnosis, Lab results, Need for admission Discharge & Departure Primary Impression: Angina at rest Additional Impressions: Coronary artery disease Coronary Disease-Associated Artery/Lesion type: unspecified vessel or lesion type [place] vs. transplanted heart: [place] heart Associated angina: angina presence unspecified Qualified Code: I25.10 - Atherosclerotic heart disease of [place] coronary artery without angina pectoris History of two vessel coronary artery bypass graft Disposition: ADMITTED TO HOSPITAL Discharge Condition All VS Reviewed: Yes Referrals: Adeel Carvalho MD (PCP) Scribe Attestation Portions of this note were transcribed by Margaret Tom. I, (Dr. Horacio Cao ) personally performed the history, physical exam and medical decision-making; I reviewed and confirmed the accuracy of the information in the transcribed note. Signed by: Margaret Tom. Danis, 08/07/2016, [id number] copies to: Adeel Carvalho MD, Beck O MD Aug 07, 2016 15:44 Margaret Tom Aug 07, 2016 15:57
[2016-08-07 16:06] LABS: EOSINOPHILS % (AUTO) 3.9 % (0-5); MONOCYTES % (AUTO) 6.9 % (4-12); Mean Corpuscular Hemoglobin 31.3 pg (27.0-35.0); Mean Corpuscular Volume 94.5 fL (81-100); NEUTROPHILS % (AUTO) 45.3 % (40-74); Platelet Count 359 bil/L (150-400)
[2016-08-07 16:35] LABS: Magnesium 2.2 mg/dL (1.6-2.6)
[2016-08-07 16:36] LABS: TROPONIN T < 0.010 ug/L (0.0-0.011)
[2016-08-07 16:52] VITALS: BP 110/67; PULSE 54; RESP 15; O2SAT 93
[2016-08-07] MEDS ORDERED: Ondansetron 2 mg/mL 2 mL Inj IVPUSH PRN (17:00)
[2016-08-07] MEDS ORDERED: Alum-Mag Hydrox-Simeth 30 mL Suspension PO PRN (17:00)
[2016-08-07] MEDS ORDERED: ISOS60TA2 PO (17:32)
[2016-08-07 17:45] VITALS: BP 114/69; PULSE 58; RESP 12; O2SAT 96
[2016-08-07 18:42] VITALS: BP 145/91; PULSE 55; RESP 18; O2SAT 97
--- NOTE | 2016-08-07 18:55 | NUR ---
Admission Pt. admitted from the ER for cp that she states has been increasingly frequent. Pt. states she called her doctor after an episode of cp this morning and was referred here. She states she has been asymptomatic since then. Was admitted for similar symptoms recently but was unable to complete the treadmill test due to leg weakness. "I hope I can do it this time." Pt. has hx of chronic back pain with multiple surgeries. Pt. is alert, oriented and steady on her feet. She is independent and denies needs. Allergies verified and sticker placed on name band. Pt. is oriented to room, call sparrow and fall precautions. Med history is obtained by pt. interview. Daughter in to visit pt. and bring dinner.
[2016-08-07 21:13] VITALS: BP 121/74; PULSE 60; RESP 18; O2SAT 96
--- NOTE | 2016-08-07 21:13 | PCM.HPMED ---
Subjective Date of Service Aug 07, 2016 Primary Provider: Admitting Physician: Vanessa Love DO Primary Care Physician: Adeel Carvalho MD Attending Physician: Vanessa Love DO Admit Status: From the Emergency Department Chief Complaint: Chest pain History of Present Illness: 60-year-old female with past medical history of CAD status post CABG 2 on 2014, asthma, hypertension presenting today with complaints of chest pain that has been intermittent lasting 5-10 minutes each time, several episodes in the last several days to months. she e states that every time she had these episodes she also has numbness in her arm and jaw. It feels like has his chest is being squeezed. She states that lately she is also becoming nauseated during these episodes and vomited once. She was worked up for the same problem in the ER a month ago she says the stress test was attempted during that admission but she was unable to complete the test for some reason. Her pharmacovigilance scientist is Dr. Diana fay. She states that she felt fine after her CABG for several months however 3-4 months ago these about states his symptoms started occurring. She also states an 8-1/2 ago she had an angioplasty here during which she had injury to femoral artery. She denies diarrhea, constipation, abdominal pain, shortness of breath. All other ROS is negative except as stated here in the history of present illness In the ER workup showed chest x-ray that had no acute findings, EKG showed normal sinus rhythm with bradycardia, lab work is mostly unremarkable. She was given 162 mg of aspirin. Off note stress echo performed on November 2014 showed abnormal moderate risk test ischemia and PDA and a NSVT during physical activity. June 2016 stress test showed mildly abnormal mild reversible ischemia in the basal inferior wall and distal lateral wall. Patient used to be a smoker but quit several months ago. She has exposure to secondhand smoke. Patient is admitted to the Green team for ACS rule out. Allergies Coded Allergies: adhesive (Verified Allergy, Severe, PROBLEM W/ ADHESIVE ON SURGICAL DRAPE DURING 2010 SURGERY, 06/25/16) chlorhexidine (Unverified Allergy, Severe, BURNING RASH, 08/07/16) BURNING RASH PMH Past medical history remarkable for asthma, arthritis, depression, chronic back pain, hypertension, CAD status post CABG Surgical History Surgical history remarkable for CABG 2, back surgery 6, femoral artery stent, iatrogenic Family History Father from esophageal cancer, mother passed with brain and lung cancer Social History Hx Alcohol Use: No (RARE) Hx Substance Use: No Hx Tobacco Use: No Smoking Status: Former Smoker Exam Vital Signs Vital Sign - Last Date Time Temp Pulse Resp B/P Pulse Ox O2 Delivery O2 Flow Rate FiO2 08/07/16 18:42 55 18 145/91 97 08/07/16 17:45 Room Air 08/07/16 15:00 36.6 Exam Gen.: no acute distress laying on bed watching TV HEENT: Normocephalic, atraumatic Heart: Regular rate and rhythm no S3-S4 murmurs Lungs: Mild wheezing is present bilateral fine crackles X Abdomen soft nontender normal bowel sounds Extremities without edema X Neck negative for JVD Neuro no focal deficits Psych negative for anxiety Lab and Diagnostics Result Diagram: 08/07/16 1538 08/07/16 1538 X-Rays, CTs and MRIs [facility] Diagnostic Imaging Department [place], [place] [id number] Patient Name: MIKE SAUNDERS MR#: [id number] [place] [facility] [place] Phys: Horacio Cao MD Date of Service: 08/07/16 1503 PROCEDURE: X-RAY CHEST ONE VIEW, PORTABLE ([id number]) INDICATIONS: chest pain TECHNIQUE: One view of the chest was acquired. COMPARISON: [facility], CR, XR CHEST 1VW (PORTABLE), 06/25/2016, 10: 58. [facility], CR, XR CHEST 2VW, 05/07/2016, 11:28. FINDINGS: Surgical changes and devices: Postoperative changes related to prior median sternotomy are present. Lungs and pleura: No pleural effusions or pneumothorax. Lungs are clear. Mediastinum: Mediastinal contours appear normal. Heart size is normal. Bones and chest wall: No suspicious bony lesions. Overlying soft tissues appear unremarkable. IMPRESSION: Stable chest. No overt heart failure or definite pneumonia. Dictated by: Hector Mcclure M.D. on 08/07/2016 at 14:40 Approved by: Hector Mcclure M.D. on 08/07/2016 at 14:41 12-lead ECG As above bradycardia normal sinus rhythm Assessment & Plan Acute assessments #1 chest pain: -- Telemonitoring [place] -- Home medications Imdur, nitroglycerin when necessary -- The medication metoprolol -- Daily aspirin --Oxygen as needed --Morphine 1 mg every 4 hours when necessary as needed for dyspnea --Patient is considered intermediate risk for ischemia , Stress test scheduled for tomorrow -- Dr. Resendiz her pharmacovigilance scientist Dr. Thompson is aware according to ER documents, we will contact him tomorrow -- Trend troponins -- Hold beta lázaro and by mouth diet for tomorrow a.m. stress test #2 GERD: PO pantoprazole Chronic assessments #3 hypertension: Continue home medications Imdur, metoprolol #4 CAD: Continue home statin, add lisinopril #5 chronic pain: Continue home medication Tylenol No. 3, Flexeril CODE STATUS: Patient wants CPR but no intubation or ventilation Alternate decision-maker : Daughter IV. Hep locked DVT prophylaxis enoxaparin subcutaneous 40 mg daily Diet cardiac GI Prophylaxis: H2 lázaro VTE Prophylaxis: Sub-Q Enoxaparin Resuscitation Status: DNR/DNI:Do Not Resuscitate/Intubate (CPR ok, but no intubation/vent) Vanessa Love DO Aug 07, 2016 21:13
[2016-08-07] MEDS ORDERED: Polyethylene Glycol (PEG) 17 Gm Powder PO PRN (21:15)
[2016-08-07] MEDS ORDERED: Albuterol 2.5 mg/3 mL Inhalation Solution NEB PRN (21:28)
[2016-08-07] MEDS: Fluticasone 250 mCg Inhaler INHALATION SCH (22:26)
[2016-08-07 23:43] LABS: Creatine Kinase 49 U/L (21-215)
[2016-08-07 23:44] LABS: TROPONIN T < 0.010 ug/L (0.0-0.011)
[2016-08-08] VITALS (8 sets, daily range): BP systolic 103–167; BP diastolic 58–95; PULSE 51–62; RESP 16–20; O2SAT 93–98
[2016-08-08] MEDS: Sodium Chloride LOK Flush 10 mL Syringe IVFLUSH SCH ×3 (01:09→16:30)
--- NOTE | 2016-08-08 03:29 | NUR ---
IV/ACTIVITY Upon start of shift at 193, pt c/o discomfort at l. AC IV site. Patent, but mildly resistant to flush. Pt said as long as she doesn't bend her arm it doesn't hurt. At 0100, IV unable to flush. D/c'd intact, clot in catheter. edge trimmer restarted IV in l. wrist, patent, easily flushed. Pt has had no c/o CP, SOB, and is completely asymptomatic. Understands NPO at midnight for stress test. Hourly rounding.
--- NOTE | 2016-08-08 03:34 | NUR ---
SKIN Pt reports easily bruised skin, prone to rashes, thin skin, and difficult removing adhesive, ends up "rubbing my skin raw to get it off." Skin turned notably red after any tourniquet applied. When removing old IV dressing, used adhesive remover, no redness noticed. Pt requested adhesive remover upon discharge to remove any adhesive.
[2016-08-08 04:09] LABS: BASOPHILS % (AUTO) 0.8 % (0-3); EOSINOPHILS % (AUTO) 4.5 % (0-5); MONOCYTES % (AUTO) 8.4 % (4-12); Mean Corpuscular Hemoglobin 31.6 pg (27.0-35.0); Mean Corpuscular Volume 93.9 fL (81-100); NEUTROPHILS % (AUTO) 40.1 % (40-74); Platelet Count 320 bil/L (150-400)
[2016-08-08 04:55] LABS: Creatine Kinase 54 U/L (21-215); TROPONIN T < 0.010 ug/L (0.0-0.011)
[2016-08-08] MEDS ORDERED: Isosorbide Mononitrate 60 mg ER24 Tablet PO SCH (08:30)
[2016-08-08] MEDS: Fluticasone 250 mCg Inhaler INHALATION SCH ×2 (09:55→22:40)
[2016-08-08] MEDS: Tiotropium 18mcg/Cap 5 Capsule Inhaler Kit INHALATION SCH (09:56)
[2016-08-08] MEDS: PARoxetine 20 mg Tablet PO SCH (09:56)
--- NOTE | 2016-08-08 12:37 | NUR ---
Chest [place]: Patient stated that she was having chest pain 09/10 at 0715 this morning per night nurse:An EKG was done . patients chest pain resolved within 5 minutes without nitroglycerine. MD was notified. Patient went for her stress test at 1200. (patients B/P meds were held) patient had no further chest pain before her stress test.)
--- NOTE | 2016-08-08 14:32 | NUR ---
Case Management: YOLY given and explained to pt. Shagufta DUMASRN
--- NOTE | 2016-08-08 15:55 | DRSVH ---
PROCEDURE: 1 DAY PHARMACOLOGICAL STRESS TEST Rest and pharmacological stress myocardial perfusion SPECT with gated imaging and ejection fraction RADIOPHARMACEUTICAL: 8.6 mCi Tc-99m tetrafosmin IV at rest and 25.7 mCi Tc-99m tetrafosmin IV at peak effect of pharmacological stress. A [id number] was performed. INDICATIONS: 60 year-old woman with chest pain. The patient has coronary artery disease with history of coronary bypass grafting in 02/2015. Evaluate myocardial ischemia. TECHNIQUE: Radiopharmaceutical was injected at peak stress test, and also at rest. SPECT images wer e obtained. SPECT myocardial perfusion images were displayed in short axis, horizontal long axis, an d vertical long axis views. Gated images were reviewed using Sightly software. COMPARISON: [facility], [place], [facility] PERF SPECT MULT, 10/15/2010, 7:59. [place], [place], [place] CARDIAC STRESS TEST PHARM, 06/26/2016, 13:30. CARDIAC STRESS: The patient started on an exercise stress test using standard [place] protocol. The pa tient exercised for 3 minutes and 39 seconds with functional aerobic impairment (KIA) +40% and reache d 74% maximum predicted heart rate. The stress test was switched to Lexiscan infusion. A pharmacologic stress test was performed under the supervision of an attending staff, using an infus ion of Lexiscan. Hemodynamic data: There is hypotensive response to Lexiscan infusion. Symptoms: The patient had 3-4/10 chest pain at peak exercise. Aminophylline: 100 mg IV EK-[address] and T wave inversion; bigeminy. FINDINGS: Raw data: There is good myocardial uptake of radiotracer. No significant motion artifacts. Left ventricle function: Gated images demonstrate normal left ventricular wall thickening. No segme ntal wall motion abnormalities. No transient ischemic dilation. Left ventricle resting end diastoli c volume is normal. Left ventricle stress ejection fraction is greater than 70%; normal range is abo ve 45%. Myocardial perfusion: There is a small, mild to moderately severe, fixed defect in the inferior late ral apex, consistent with a small myocardial infarct. There is minimal reversibility between the stre ss images and resting images. Comparison to prior examinations: Compared with the last examination on 06/26/16, the fixed defect inf eroapical defect is slightly more pronounced. IMPRESSION: 1. Probably abnormal myocardial perfusion images. There is a small, [id number] severe, fixed perfusion defect in the inferolateral apex, suspicious for a small myocardial infarct. There is minim al wali-infarct ischemia in the inferior apex. 2. There is no significant reversible defect to suggest myocardial ischemia. 3. Normal left ventricular volume and systolic function. 4. Severely limited exercise capacity. The patient experience 3-4/10 chest pain at peak exercise. The patient failed to reach the target heart rate. The stress test was switched to Lexiscan infusion. 5. Abnormal EKG 1-[address] depression and T wave inversion in multiple leads on EKG, compatible with i schemia. PQRS ATTESTATIONS: Measure 322 - Is this imaging test primarily performed on a low-risk surgery patient for preoperative evaluation within 30 days preceding their low-risk non-cardiac surgery? Low-risk surgery is defined as cardiac or myocardial infarction less than 1%, including (but not limited to) endoscopic pr ocedures, superficial procedures, cataract surgery, and excisional breast surgery: Answer: No Measure 323 - Is this imaging test performed primarily for the monitoring of an asymptomatic patient who had percutaneous coronary intervention on the visit date or within 2 years of the visit date? An swer: No Measure 324 - Is this imaging test performed primarily for the initial detection and risk assessment on an asymptomatic, low coronary heart disease patient? Low CHD risk definition = clinicians should consider the maximum number of available patient factors used to estimate risk based on [place] (A TP III criteria), typically age, gender, diabetes, smoking status, and use of blood pressure medicati on, and integrate age appropriate estimates for missing elements, such as LDL or standard blood press ure. Answer: No Dictated by: Angel Goss M.D. on 08/08/2016 at 15:22 Approved by: Angel Goss M.D. on 08/08/2016 at 15:53
--- NOTE | 2016-08-08 16:09 | NUR ---
Social Work: Initial assessment Data & Assessment: See Initial Assessment. EMR reviewed. Patient is a 60 y/o female who admitted with Angina. Director Employee Safety And Health met with patient at bedside to complete initial assessment, SW role reviewed, and discharge planning discussed. Patient was alert and oriented x3. Patient's primary care physician is Dr. Bladimir Mccoy. Patient has Medicare and [employer] insurance. Patient has no VA and no LTC benefits. patient's NOK/DPOA is her daughter Debbi Britt. SW requested a copy of patient's Advance directive and DPOA. Patient lives at home with son and grandson in an apartment with sixteen steps to enter. Patient is independent at baseline and does drive. Patient has no DME, no HH history and no SNF history. patient does no have any discharge needs at the current time. SW provided patient with contact information on [employer]. SW will continue to follow and assist patient throughout stay. Plan: Patient is likely to discharge home no needs via POV. SW will continue to follow and assist throughout stay. Ori Lee. KEYLA CARTAGENA Addendum: 08/08/16 at 1617 by ORI REGALADO Amended: Links added.
--- NOTE | 2016-08-08 21:22 | PCM.PNMED ---
Subjective Date of Service Aug 08, 2016 Subjective Patient is seen and examined a.m. she had a twinge-like episode where she felt like somebody was squeezing from under her rib cage for 5-10 minutes with radiation of pain to neck and arm on the left side. EKG was done, did not reveal much changes from prior except in one lead. When the examiner went to check on the patient later on she was sleeping and had to be woken up to be examined. She does say that she feels okay to go home, just wanted to know why she keeps having pain. Exam Vital Signs Vital Sign - Last Date Time Temp Pulse Resp B/P Pulse Ox O2 Delivery O2 Flow Rate FiO2 08/08/16 21:12 36.7 60 16 120/74 95 Room Air Intake and Output 08/07/16 08/07/16 08/08/16 Cumulative From/Thru 15:00 23:00 07:00 08/07/16 15:00 - 08/07/16 18:32 # Voids 1 1 Exam Gen.: No acute distress HEENT normocephalic, atraumatic Heart: Regular rate and rhythm, no S3-S4 murmurs Lungs: Clear to auscultation no crackles or wheezes Abdomen: Soft nondistended Extremities: Negative for edema Psych: Negative Neurological: No focal deficits IVs and Medications IV Fluids None Medications Reviewed: Medications were reviewed in detail Lab and Diagnostics Result Diagram: 08/08/16 0330 08/08/16 0330 X-Rays, CTs and MRIs [facility] [place] [address] Patient Name: MIKE SAUNDERS MR#: [id number] Location: [facility] [place] Ordering Phys: Horacio Cao MD Date of Service: 08/07/16 1503 PROCEDURE: X-RAY CHEST ONE VIEW, PORTABLE ([id number]) INDICATIONS: chest pain TECHNIQUE: One view of the chest was acquired. COMPARISON: [facility], CR, XR CHEST 1VW (PORTABLE), 06/25/2016, 10: 58. [facility], CR, XR CHEST 2VW, 05/07/2016, 11:28. FINDINGS: Surgical changes and devices: Postoperative changes related to prior median sternotomy are present. Lungs and pleura: No pleural effusions or pneumothorax. Lungs are clear. Mediastinum: Mediastinal contours appear normal. Heart size is normal. Bones and chest wall: No suspicious bony lesions. Overlying soft tissues appear unremarkable. IMPRESSION: Stable chest. No overt heart failure or definite pneumonia. Dictated by: Hector Mcclure M.D. on 08/07/2016 at 14:40 Approved by: Hector Mcclure M.D. on 08/07/2016 at 14:41 12-lead ECG As above bradycardia normal sinus rhythm Additional Diagnostics [facility] [place] [address] Patient Name: MIKE SAUNDERS MR#: [id number] Location: [facility] [place] Ordering Phys: Vanessa Love DO Date of Service: 08/08/162117 PROCEDURE: 1 DAY PHARMACOLOGICAL STRESS TEST Rest and pharmacological stress myocardial perfusion SPECT with gated imaging and ejection fraction RADIOPHARMACEUTICAL: 8.6 mCi Tc-99m tetrafosmin IV at rest and 25.7 mCi Tc-99m tetrafosmin IV at peak effect of pharmacological stress. A tpk-hmp-sdixvdal was performed. INDICATIONS: 60 year-old woman with chest pain. The patient has coronary artery disease with history of coronary bypass grafting in 02/2015. Evaluate myocardial ischemia. TECHNIQUE: Radiopharmaceutical was injected at peak stress test, and also at rest. SPECT images were obtained. SPECT myocardial perfusion images were displayed in short axis, horizontal long axis, and vertical long axis views. Gated images were reviewed using Auto[employer] software. COMPARISON: [place], [place], MYOCARD PERF SPECT MULT, 10/15/2010, 7: 59. [place], [place], [place] CARDIAC STRESS TEST PHARM, 06/26/2016, 13:30. CARDIAC STRESS: The patient started on an exercise stress test using standard Antwon protocol. The patient exercised for 3 minutes and 39 seconds with functional aerobic impairment (KIA) +40% and reached 74% maximum predicted heart rate. The stress test was switched to Lexiscan infusion. A pharmacologic stress test was performed under the supervision of an attending staff, using an infusion of Lexiscan. Hemodynamic data: There is hypotensive response to Lexiscan infusion. Symptoms: The patient had 3-4/10 chest pain at peak exercise. Aminophylline: 100 mg IV EK-[address] and T wave inversion; bigeminy. FINDINGS: Raw data: There is good myocardial uptake of radiotracer. No significant motion artifacts. Left ventricle function: Gated images demonstrate normal left ventricular wall thickening. No segmental wall motion abnormalities. No transient ischemic dilation. Left ventricle resting end diastolic volume is normal. Left ventricle stress ejection fraction is greater than 70%; normal range is above 45 %. Myocardial perfusion: There is a small, mild to moderately severe, fixed defect in the inferior lateral apex, consistent with a small myocardial infarct. There is minimal reversibility between the stress images and resting images. Comparison to prior examinations: Compared with the last examination on 06/26/16 , the fixed defect inferoapical defect is slightly more pronounced. IMPRESSION: 1. Probably abnormal myocardial perfusion images. There is a small, mild-to- moderately severe, fixed perfusion defect in the inferolateral apex, suspicious for a small myocardial infarct. There is minimal wali-infarct ischemia in the inferior apex. 2. There is no significant reversible defect to suggest myocardial ischemia. 3. Normal left ventricular volume and systolic function. 4. Severely limited exercise capacity. The patient experience 3-4/10 chest pain at peak exercise. The patient failed to reach the target heart rate. The stress test was switched to Lexiscan infusion. 5. Abnormal EKG 1-[address] depression and T wave inversion in multiple leads on EKG, compatible with ischemia. PQRS ATTESTATIONS: Measure 322 - Is this imaging test primarily performed on a low-risk surgery patient for preoperative evaluation within 30 days preceding their low-risk non- cardiac surgery? Low-risk surgery is defined as cardiac or myocardial infarction less than 1%, including (but not limited to) endoscopic procedures, superficial procedures, cataract surgery, and excisional breast surgery: Answer : No Measure 323 - Is this imaging test performed primarily for the monitoring of an asymptomatic patient who had percutaneous coronary intervention on the visit date or within 2 years of the visit date? Answer: No Measure 324 - Is this imaging test performed primarily for the initial detection and risk assessment on an asymptomatic, low coronary heart disease patient? Low CHD risk definition = clinicians should consider the maximum number of available patient factors used to estimate risk based on [place] ( ATP III criteria), typically age, gender, diabetes, smoking status, and use of blood pressure medication, and integrate age appropriate estimates for missing elements, such as LDL or standard blood pressure. Answer: No Dictated by: Angel Goss M.D. on 08/08/2016 at 15:22 Approved by: Angel Goss M.D. on 08/08/2016 at 15:53 ADDENDUM This report includes an Addendum and supersedes previous reports for this exam. PROCEDURE: 1 DAY PHARMACOLOGICAL STRESS TEST Rest and pharmacological stress myocardial perfusion SPECT with gated imaging and ejection fraction RADIOPHARMACEUTICAL: 8.6 mCi Tc-99m tetrafosmin IV at rest and 25.7 mCi Tc-99m tetrafosmin IV at peak effect of pharmacological stress. A ctq-hur-jfgxlssw was performed. INDICATIONS: 60 year-old woman with chest pain. The patient has coronary artery disease with history of coronary bypass grafting in 02/2015. Evaluate myocardial ischemia. TECHNIQUE: Radiopharmaceutical was injected at peak stress test, and also at rest. SPECT images were obtained. SPECT myocardial perfusion images were displayed in short axis, horizontal long axis, and vertical long axis views. Gated images were reviewed using [employer] software. COMPARISON: [place], [place], MYOCARD PERF SPECT MULT, 10/15/2010, 7: 59. [place], [place], [place] CARDIAC STRESS TEST PHARM, 06/26/2016, 13:30. CARDIAC STRESS: The patient started on an exercise stress test using standard Antwon protocol. The patient exercised for 3 minutes and 39 seconds with functional aerobic impairment (KIA) +40% and reached 74% maximum predicted heart rate. The stress test was switched to Lexiscan infusion. A pharmacologic stress test was performed under the supervision of an attending staff, using an infusion of Lexiscan. Hemodynamic data: There is hypotensive response to Lexiscan infusion. Symptoms: The patient had 3-4/10 chest pain at peak exercise. Aminophylline: 100 mg IV EK-[address] and T wave inversion; bigeminy. FINDINGS: Raw data: There is good myocardial uptake of radiotracer. No significant motion artifacts. Left ventricle function: Gated images demonstrate normal left ventricular wall thickening. No segmental wall motion abnormalities. No transient ischemic dilation. Left ventricle resting end diastolic volume is normal. Left ventricle stress ejection fraction is greater than 70%; normal range is above 45 %. Myocardial perfusion: There is a small, mild to moderately severe, fixed defect in the inferior lateral apex, consistent with a small myocardial infarct. There is minimal reversibility between the stress images and resting images. Comparison to prior examinations: Compared with the last examination on 06/26/16 , the fixed defect inferoapical defect is slightly more pronounced. IMPRESSION: 1. Probably abnormal myocardial perfusion images. There is a small, mild-to- moderately severe, fixed perfusion defect in the inferolateral apex, suspicious for a small myocardial infarct. There is minimal wali-infarct ischemia in the inferior apex. 2. There is no significant reversible defect to suggest myocardial ischemia. 3. Normal left ventricular volume and systolic function. 4. Severely limited exercise capacity. The patient experience 3-4/10 chest pain at peak exercise. The patient failed to reach the target heart rate. The stress test was switched to Lexiscan infusion. 5. Abnormal EKG 1-[address] depression and T wave inversion in multiple leads on EKG, compatible with ischemia. PQRS ATTESTATIONS: Measure 322 - Is this imaging test primarily performed on a low-risk surgery patient for preoperative evaluation within 30 days preceding their low-risk non- cardiac surgery? Low-risk surgery is defined as cardiac or myocardial infarction less than 1%, including (but not limited to) endoscopic procedures, superficial procedures, cataract surgery, and excisional breast surgery: Answer : No Measure 323 - Is this imaging test performed primarily for the monitoring of an asymptomatic patient who had percutaneous coronary intervention on the visit date or within 2 years of the visit date? Answer: No Measure 324 - Is this imaging test performed primarily for the initial detection and risk assessment on an asymptomatic, low coronary heart disease patient? Low CHD risk definition = clinicians should consider the maximum number of available patient factors used to estimate risk based on [place] ( ATP III criteria), typically age, gender, diabetes, smoking status, and use of blood pressure medication, and integrate age appropriate estimates for missing elements, such as LDL or standard blood pressure. Answer: No Dictated by: Angel Goss M.D. on 08/08/2016 at 15:22 Approved by: Angel Goss M.D. on 08/08/2016 at 15:53 ADDENDUM: A focus of sestamibi uptake projects to the left axilla, which could represent activity within a enlarged axillary lymph node. Recommend clinical correlation and followup. Dictated by: Angel Goss M.D. on 08/08/2016 at 16:34 Approved by: Angel Goss M.D. on 08/08/2016 at 16:35 Report status: Addendum REPORT#: [id number] Assessment & Plan Acute assessments #1 chest pain: -- Telemonitoring Margaret -- Home medications Imdur, nitroglycerin when necessary -- The medication metoprolol -- Daily aspirin --Oxygen as needed --Morphine 1 mg every 4 hours when necessary as needed for dyspnea --Patient is considered intermediate risk for ischemia , Stress test scheduled for tomorrow -- Dr. Resendiz her chemical production technician Dr. Thompson is aware according to ER documents, we will contact him tomorrow -- Trend troponins -- Hold beta lázaro and by mouth diet for tomorrow a.m. stress test -- Patient's stress test was read as mild to moderate, minimal area of infarct inferior laterally in the apex minimal abnormality (performed call from radiology): Official report pending -- Contacted patient's chemical production technician Dr. Resendiz with these results, he feels that she can be followed up as outpatient in 1-2 months with one of his mid levels. He recommends that we increase her ongoing Imdur dosage to 120 mg daily : This is done #2 GERD: PO pantoprazole Chronic assessments #3 hypertension: Continue home medications Imdur, metoprolol #4 CAD: Continue home statin, add lisinopril #5 chronic pain: Continue home medication Tylenol No. 3, Flexeril CODE STATUS: Patient wants CPR but no intubation or ventilation Alternate decision-maker : Daughter IV. Hep locked DVT prophylaxis enoxaparin subcutaneous 40 mg daily Diet cardiac GI Prophylaxis: H2 lázaro VTE Prophylaxis: Sub-Q Enoxaparin Resuscitation Status: DNR/DNI:Do Not Resuscitate/Intubate (CPR ok, but no intubation/vent) Vanessa Love DO Aug 08, 2016 21:22
[2016-08-09] MEDS: Sodium Chloride LOK Flush 10 mL Syringe IVFLUSH SCH ×2 (00:49→08:48)
[2016-08-09 01:29] VITALS: BP 107/69; PULSE 55; RESP 16; O2SAT 92
[2016-08-09 05:22] VITALS: BP 120/76; PULSE 67; RESP 16; O2SAT 95
[2016-08-09 05:51] VITALS: PULSE 68
--- NOTE | 2016-08-09 06:33 | NUR ---
Activity Pt remained in room for the shift, alert and oriented x4. No pain issues at this time. Pt slept well, will continue to monitor.
[2016-08-09] MEDS: Tiotropium 18mcg/Cap 5 Capsule Inhaler Kit INHALATION SCH (08:20)
[2016-08-09] MEDS: Fluticasone 250 mCg Inhaler INHALATION SCH (08:20)
[2016-08-09] MEDS ORDERED: Isosorbide Mononitrate 30 mg ER24 Tablet PO SCH ×2 (08:30)
[2016-08-09] MEDS: PARoxetine 20 mg Tablet PO SCH (08:48)
--- NOTE | 2016-08-09 08:50 | PCM.DIMED ---
Discharge Instructions Date of Service Aug 09, 2016 Dates of Hospitalization Aug 07, 2016 at 18:13 Discharge Diagnosis Discharge Diagnosis stable angina, cad s/p CABGx2, asthma Test Results [facility] Diagnostic [place] [address] Patient Name: MIKE SAUNDERS MR#: [id number] Location: [facility] [place] Ordering Phys: Vanessa Love DO Date of Service: 08/08/162117 PROCEDURE: 1 DAY PHARMACOLOGICAL STRESS TEST Rest and pharmacological stress myocardial perfusion SPECT with gated imaging and ejection fraction RADIOPHARMACEUTICAL: 8.6 mCi Tc-99m tetrafosmin IV at rest and 25.7 mCi Tc-99m tetrafosmin IV at peak effect of pharmacological stress. A dvm-yze-gxgtztjp was performed. INDICATIONS: 60 year-old woman with chest pain. The patient has coronary artery disease with history of coronary bypass grafting in 02/2015. Evaluate myocardial ischemia. TECHNIQUE: Radiopharmaceutical was injected at peak stress test, and also at rest. SPECT images were obtained. SPECT myocardial perfusion images were displayed in short axis, horizontal long axis, and vertical long axis views. Gated images were reviewed using [employer] software. COMPARISON: [place], [place], MYOCARD PERF SPECT MULT, 10/15/2010, 7: 59. [place], [place], [place] CARDIAC STRESS TEST PHARM, 06/26/2016, 13:30. CARDIAC STRESS: The patient started on an exercise stress test using standard Antwon protocol. The patient exercised for 3 minutes and 39 seconds with functional aerobic impairment (KIA) +40% and reached 74% maximum predicted heart rate. The stress test was switched to Lexiscan infusion. A pharmacologic stress test was performed under the supervision of an attending staff, using an infusion of Lexiscan. Hemodynamic data: There is hypotensive response to Lexiscan infusion. Symptoms: The patient had 3-4/10 chest pain at peak exercise. Aminophylline: 100 mg IV EK-[address] and T wave inversion; bigeminy. FINDINGS: Raw data: There is good myocardial uptake of radiotracer. No significant motion artifacts. Left ventricle function: Gated images demonstrate normal left ventricular wall thickening. No segmental wall motion abnormalities. No transient ischemic dilation. Left ventricle resting end diastolic volume is normal. Left ventricle stress ejection fraction is greater than 70%; normal range is above 45 %. Myocardial perfusion: There is a small, mild to moderately severe, fixed defect in the inferior lateral apex, consistent with a small myocardial infarct. There is minimal reversibility between the stress images and resting images. Comparison to prior examinations: Compared with the last examination on 06/26/16 , the fixed defect inferoapical defect is slightly more pronounced. IMPRESSION: 1. Probably abnormal myocardial perfusion images. There is a small, mild-to- moderately severe, fixed perfusion defect in the inferolateral apex, suspicious for a small myocardial infarct. There is minimal wali-infarct ischemia in the inferior apex. 2. There is no significant reversible defect to suggest myocardial ischemia. 3. Normal left ventricular volume and systolic function. 4. Severely limited exercise capacity. The patient experience 3-4/10 chest pain at peak exercise. The patient failed to reach the target heart rate. The stress test was switched to Lexiscan infusion. 5. Abnormal EKG 1-[address] depression and T wave inversion in multiple leads on EKG, compatible with ischemia. PQRS ATTESTATIONS: Measure 322 - Is this imaging test primarily performed on a low-risk surgery patient for preoperative evaluation within 30 days preceding their low-risk non- cardiac surgery? Low-risk surgery is defined as cardiac or myocardial infarction less than 1%, including (but not limited to) endoscopic procedures, superficial procedures, cataract surgery, and excisional breast surgery: Answer : No Measure 323 - Is this imaging test performed primarily for the monitoring of an asymptomatic patient who had percutaneous coronary intervention on the visit date or within 2 years of the visit date? Answer: No Measure 324 - Is this imaging test performed primarily for the initial detection and risk assessment on an asymptomatic, low coronary heart disease patient? Low CHD risk definition = clinicians should consider the maximum number of available patient factors used to estimate risk based on [place] ( ATP III criteria), typically age, gender, diabetes, smoking status, and use of blood pressure medication, and integrate age appropriate estimates for missing elements, such as LDL or standard blood pressure. Answer: No Dictated by: Angel Goss M.D. on 08/08/2016 at 15:22 Approved by: Angel Goss M.D. on 08/08/2016 at 15:53 ADDENDUM This report includes an Addendum and supersedes previous reports for this exam. PROCEDURE: 1 DAY PHARMACOLOGICAL STRESS TEST Rest and pharmacological stress myocardial perfusion SPECT with gated imaging and ejection fraction RADIOPHARMACEUTICAL: 8.6 mCi Tc-99m tetrafosmin IV at rest and 25.7 mCi Tc-99m tetrafosmin IV at peak effect of pharmacological stress. A pfl-wxb-hwuwnwtf was performed. INDICATIONS: 60 year-old woman with chest pain. The patient has coronary artery disease with history of coronary bypass grafting in 02/2015. Evaluate myocardial ischemia. TECHNIQUE: Radiopharmaceutical was injected at peak stress test, and also at rest. SPECT images were obtained. SPECT myocardial perfusion images were displayed in short axis, horizontal long axis, and vertical long axis views. Gated images were reviewed using [employer] software. COMPARISON: [place], [place], MYOCARD PERF SPECT MULT, 10/15/2010, 7: 59. [place], [place] CARDIAC STRESS TEST PHARM, 06/26/2016, 13:30. CARDIAC STRESS: The patient started on an exercise stress test using standard Antwon protocol. The patient exercised for 3 minutes and 39 seconds with functional aerobic impairment (KIA) +40% and reached 74% maximum predicted heart rate. The stress test was switched to Lexiscan infusion. A pharmacologic stress test was performed under the supervision of an attending staff, using an infusion of Lexiscan. Hemodynamic data: There is hypotensive response to Lexiscan infusion. Symptoms: The patient had 3-4/10 chest pain at peak exercise. Aminophylline: 100 mg IV EK-[address] and T wave inversion; bigeminy. FINDINGS: Raw data: There is good myocardial uptake of radiotracer. No significant motion artifacts. Left ventricle function: Gated images demonstrate normal left ventricular wall thickening. No segmental wall motion abnormalities. No transient ischemic dilation. Left ventricle resting end diastolic volume is normal. Left ventricle stress ejection fraction is greater than 70%; normal range is above 45 %. Myocardial perfusion: There is a small, mild to moderately severe, fixed defect in the inferior lateral apex, consistent with a small myocardial infarct. There is minimal reversibility between the stress images and resting images. Comparison to prior examinations: Compared with the last examination on 06/26/16 , the fixed defect inferoapical defect is slightly more pronounced. IMPRESSION: 1. Probably abnormal myocardial perfusion images. There is a small, mild-to- moderately severe, fixed perfusion defect in the inferolateral apex, suspicious for a small myocardial infarct. There is minimal wali-infarct ischemia in the inferior apex. 2. There is no significant reversible defect to suggest myocardial ischemia. 3. Normal left ventricular volume and systolic function. 4. Severely limited exercise capacity. The patient experience 3-4/10 chest pain at peak exercise. The patient failed to reach the target heart rate. The stress test was switched to Lexiscan infusion. 5. Abnormal EKG 1-[address] depression and T wave inversion in multiple leads on EKG, compatible with ischemia. PQRS ATTESTATIONS: Measure 322 - Is this imaging test primarily performed on a low-risk surgery patient for preoperative evaluation within 30 days preceding their low-risk non- cardiac surgery? Low-risk surgery is defined as cardiac or myocardial infarction less than 1%, including (but not limited to) endoscopic procedures, superficial procedures, cataract surgery, and excisional breast surgery: Answer : No Measure 323 - Is this imaging test performed primarily for the monitoring of an asymptomatic patient who had percutaneous coronary intervention on the visit date or within 2 years of the visit date? Answer: No Measure 324 - Is this imaging test performed primarily for the initial detection and risk assessment on an asymptomatic, low coronary heart disease patient? Low CHD risk definition = clinicians should consider the maximum number of available patient factors used to estimate risk based on [place] ( ATP III criteria), typically age, gender, diabetes, smoking status, and use of blood pressure medication, and integrate age appropriate estimates for missing elements, such as LDL or standard blood pressure. Answer: No Dictated by: Angel Goss M.D. on 08/08/2016 at 15:22 Approved by: Angel Goss M.D. on 08/08/2016 at 15:53 ADDENDUM: A focus of sestamibi uptake projects to the left axilla, which could represent activity within a enlarged axillary lymph node. Recommend clinical correlation and followup. Dictated by: Angel Goss M.D. on 08/08/2016 at 16:34 Approved by: Angel Goss M.D. on 08/08/2016 at 16:35 Report status: Addendum REPORT#: [id number] Diet Low fat, Low Sodium, Heart Healthy Activity No restrictions Call your provider Fever or Chills, Shortness of breath, Bleeding, Chest pain, Vomitting, Excessive diarrhea, Weakness (unilateral), Other Patient Instructions Please note your Isosorbide mononitrate dose is increased to 120 mg. Follow-up plan F/U with patient's cardiology clinic w/ Dr. Darling in 1-2 months with one of his mid level providers. F/U with PCP in 2 weeks Vanessa Love DO Aug 09, 2016 08:50
[2016-08-09] MEDS ORDERED: ISOS30TA4 PO (08:53)
[2016-08-09 09:18] VITALS: BP 127/82; PULSE 64; RESP 16; O2SAT 92
--- NOTE | 2016-08-09 10:46 | NUR ---
Social Work: Discharge Data: EMR reviewed. Patient is on day 2 of hospitalization for angina per H&P. Pt is medically cleared to discharge today per morning rounds and is up and independent in room. Pt will discharge home via family with no needs. Assessment: Pt who is independent at baseline. Plan: Patient is to discharge home no needs via POV. CORAZON Cheney
--- NOTE | 2016-08-09 11:30 | NUR ---
Discharge Nursing Note: Patient was discharged to home at 1130. He IV was discontinued intact. Her Telemetry was removed. All of her discharge information was reviewed with her and her questions were answered to her satisfaction. Patient was escorted to the hospital lobby by nursing staff member and she was driven to home by her family member.
--- NOTE | 2016-08-09 23:07 | PCM.DC.MED ---
Discharge Summary Date of Service Aug 09, 2016 Dates of Hospitalization Date of Hospital Admission Aug 07, 2016 at 18:13 Date of Discharge: Aug 09, 2016 Providers: Admitting Physician: Vanessa Mayfield DO Primary Care Physician: Adeel Carvalho MD Attending Physician: Vanessa Mayfield DO Diagnosis at Time of Discharge Diagnosis at Time of Discharge stable angina, cad s/p CABGx2, asthma Consultations Phone consultation with the cardiology Dr. Resendiz Procedures XRay, CTs & MRIs [facility] Diagnostic [place] [address] Patient Name: MIKE SAUNDERS MR#: [id number] [place] [facility] [place] Phys: Horacio Cao MD Date of Service: 08/07/16 1503 PROCEDURE: X-RAY CHEST ONE VIEW, PORTABLE ([id number]) INDICATIONS: chest pain TECHNIQUE: One view of the chest was acquired. COMPARISON: [facility], CR, XR CHEST 1VW (PORTABLE), 06/25/2016, 10: 58. [facility], CR, XR CHEST 2VW, 05/07/2016, 11:28. FINDINGS: Surgical changes and devices: Postoperative changes related to prior median sternotomy are present. Lungs and pleura: No pleural effusions or pneumothorax. Lungs are clear. Mediastinum: Mediastinal contours appear normal. Heart size is normal. Bones and chest wall: No suspicious bony lesions. Overlying soft tissues appear unremarkable. IMPRESSION: Stable chest. No overt heart failure or definite pneumonia. Dictated by: Hector Mcclure M.D. on 08/07/2016 at 14:40 Approved by: Hector Mcclure M.D. on 08/07/2016 at 14:41 ECG 12 Lead As above bradycardia normal sinus rhythm Other Diagnostics [facility] Diagnostic [place] [address] Patient Name: MIKE SAUNDERS MR#: [id number] Location: [facility] [place] Ordering Phys: Vanessa Mayfield DO Date of Service: 08/08/16 2118 PROCEDURE: 1 DAY PHARMACOLOGICAL STRESS TEST Rest and pharmacological stress myocardial perfusion SPECT with gated imaging and ejection fraction RADIOPHARMACEUTICAL: 8.6 mCi Tc-99m tetrafosmin IV at rest and 25.7 mCi Tc-99m tetrafosmin IV at peak effect of pharmacological stress. A ghe-vkk-durcmtgn was performed. INDICATIONS: 60 year-old woman with chest pain. The patient has coronary artery disease with history of coronary bypass grafting in 02/2015. Evaluate myocardial ischemia. TECHNIQUE: Radiopharmaceutical was injected at peak stress test, and also at rest. SPECT images were obtained. SPECT myocardial perfusion images were displayed in short axis, horizontal long axis, and vertical long axis views. Gated images were reviewed using FetchDog software. COMPARISON: [place], MYOCARD PERF SPECT MULT, 10/15/2010, 7: 59. [place], [place] CARDIAC STRESS TEST PHARM, 06/26/2016, 13:30. CARDIAC STRESS: The patient started on an exercise stress test using standard [place] protocol. The patient exercised for 3 minutes and 39 seconds with functional aerobic impairment (KIA) +40% and reached 74% maximum predicted heart rate. The stress test was switched to Lexiscan infusion. A pharmacologic stress test was performed under the supervision of an attending staff, using an infusion of Lexiscan. Hemodynamic data: There is hypotensive response to Lexiscan infusion. Symptoms: The patient had 3-4/10 chest pain at peak exercise. Aminophylline: 100 mg IV EK-[address] and T wave inversion; bigeminy. FINDINGS: Raw data: There is good myocardial uptake of radiotracer. No significant motion artifacts. Left ventricle function: Gated images demonstrate normal left ventricular wall thickening. No segmental wall motion abnormalities. No transient ischemic dilation. Left ventricle resting end diastolic volume is normal. Left ventricle stress ejection fraction is greater than 70%; normal range is above 45 %. Myocardial perfusion: There is a small, mild to moderately severe, fixed defect in the inferior lateral apex, consistent with a small myocardial infarct. There is minimal reversibility between the stress images and resting images. Comparison to prior examinations: Compared with the last examination on 06/26/16 , the fixed defect inferoapical defect is slightly more pronounced. IMPRESSION: 1. Probably abnormal myocardial perfusion images. There is a small, mild-to- moderately severe, fixed perfusion defect in the inferolateral apex, suspicious for a small myocardial infarct. There is minimal wali-infarct ischemia in the inferior apex. 2. There is no significant reversible defect to suggest myocardial ischemia. 3. Normal left ventricular volume and systolic function. 4. Severely limited exercise capacity. The patient experience 3-4/10 chest pain at peak exercise. The patient failed to reach the target heart rate. The stress test was switched to Lexiscan infusion. 5. Abnormal EKG 1-[address] depression and T wave inversion in multiple leads on EKG, compatible with ischemia. PQRS ATTESTATIONS: Measure 322 - Is this imaging test primarily performed on a low-risk surgery patient for preoperative evaluation within 30 days preceding their low-risk non- cardiac surgery? Low-risk surgery is defined as cardiac or myocardial infarction less than 1%, including (but not limited to) endoscopic procedures, superficial procedures, cataract surgery, and excisional breast surgery: Answer : No Measure 323 - Is this imaging test performed primarily for the monitoring of an asymptomatic patient who had percutaneous coronary intervention on the visit date or within 2 years of the visit date? Answer: No Measure 324 - Is this imaging test performed primarily for the initial detection and risk assessment on an asymptomatic, low coronary heart disease patient? Low CHD risk definition = clinicians should consider the maximum number of available patient factors used to estimate risk based on [place] ( ATP III criteria), typically age, gender, diabetes, smoking status, and use of blood pressure medication, and integrate age appropriate estimates for missing elements, such as LDL or standard blood pressure. Answer: No Dictated by: Angel Goss M.D. on 08/08/2016 at 15:22 Approved by: Angel Goss M.D. on 08/08/2016 at 15:53 ADDENDUM This report includes an Addendum and supersedes previous reports for this exam. PROCEDURE: 1 DAY PHARMACOLOGICAL STRESS TEST Rest and pharmacological stress myocardial perfusion SPECT with gated imaging and ejection fraction RADIOPHARMACEUTICAL: 8.6 mCi Tc-99m tetrafosmin IV at rest and 25.7 mCi Tc-99m tetrafosmin IV at peak effect of pharmacological stress. A flj-kha-mgusaxja was performed. INDICATIONS: 60 year-old woman with chest pain. The patient has coronary artery disease with history of coronary bypass grafting in 02/2015. Evaluate myocardial ischemia. TECHNIQUE: Radiopharmaceutical was injected at peak stress test, and also at rest. SPECT images were obtained. SPECT myocardial perfusion images were displayed in short axis, horizontal long axis, and vertical long axis views. Gated images were reviewed using FetchDog software. COMPARISON: [place], [facility] PERF SPECT MULT, 10/15/2010, 7: 59. [place], [place] CARDIAC STRESS TEST PHARM, 06/26/2016, 13:30. CARDIAC STRESS: The patient started on an exercise stress test using standard [place] protocol. The patient exercised for 3 minutes and 39 seconds with functional aerobic impairment (KIA) +40% and reached 74% maximum predicted heart rate. The stress test was switched to Lexiscan infusion. A pharmacologic stress test was performed under the supervision of an attending staff, using an infusion of Lexiscan. Hemodynamic data: There is hypotensive response to Lexiscan infusion. Symptoms: The patient had 3-4/10 chest pain at peak exercise. Aminophylline: 100 mg IV EK-[address] and T wave inversion; bigeminy. FINDINGS: Raw data: There is good myocardial uptake of radiotracer. No significant motion artifacts. Left ventricle function: Gated images demonstrate normal left ventricular wall thickening. No segmental wall motion abnormalities. No transient ischemic dilation. Left ventricle resting end diastolic volume is normal. Left ventricle stress ejection fraction is greater than 70%; normal range is above 45 %. Myocardial perfusion: There is a small, mild to moderately severe, fixed defect in the inferior lateral apex, consistent with a small myocardial infarct. There is minimal reversibility between the stress images and resting images. Comparison to prior examinations: Compared with the last examination on 06/26/16 , the fixed defect inferoapical defect is slightly more pronounced. IMPRESSION: 1. Probably abnormal myocardial perfusion images. There is a small, mild-to- moderately severe, fixed perfusion defect in the inferolateral apex, suspicious for a small myocardial infarct. There is minimal wali-infarct ischemia in the inferior apex. 2. There is no significant reversible defect to suggest myocardial ischemia. 3. Normal left ventricular volume and systolic function. 4. Severely limited exercise capacity. The patient experience 3-4/10 chest pain at peak exercise. The patient failed to reach the target heart rate. The stress test was switched to Lexiscan infusion. 5. Abnormal EKG 1-[address] depression and T wave inversion in multiple leads on EKG, compatible with ischemia. PQRS ATTESTATIONS: Measure 322 - Is this imaging test primarily performed on a low-risk surgery patient for preoperative evaluation within 30 days preceding their low-risk non- cardiac surgery? Low-risk surgery is defined as cardiac or myocardial infarction less than 1%, including (but not limited to) endoscopic procedures, superficial procedures, cataract surgery, and excisional breast surgery: Answer : No Measure 323 - Is this imaging test performed primarily for the monitoring of an asymptomatic patient who had percutaneous coronary intervention on the visit date or within 2 years of the visit date? Answer: No Measure 324 - Is this imaging test performed primarily for the initial detection and risk assessment on an asymptomatic, low coronary heart disease patient? Low CHD risk definition = clinicians should consider the maximum number of available patient factors used to estimate risk based on [place] ( ATP III criteria), typically age, gender, diabetes, smoking status, and use of blood pressure medication, and integrate age appropriate estimates for missing elements, such as LDL or standard blood pressure. Answer: No Dictated by: Angel Goss M.D. on 08/08/2016 at 15:22 Approved by: Angel Goss M.D. on 08/08/2016 at 15:53 ADDENDUM: A focus of sestamibi uptake projects to the left axilla, which could represent activity within a enlarged axillary lymph node. Recommend clinical correlation and followup. Dictated by: Angel Goss M.D. on 08/08/2016 at 16:34 Approved by: Angel Goss M.D. on 08/08/2016 at 16:35 Report status: Addendum REPORT#: [id number] Brief History 60-year-old female with past medical history of CAD status post CABG 2 on 2014, asthma, hypertension presenting today with complaints of chest pain that has been intermittent lasting 5-10 minutes each time, several episodes in the last several days to months. she e states that every time she had these episodes she also has numbness in her arm and jaw. It feels like has his chest is being squeezed. She states that lately she is also becoming nauseated during these episodes and vomited once. She was worked up for the same problem in the ER a month ago she says the stress test was attempted during that admission but she was unable to complete the test for some reason. Her park warden is Dr. Diana fay. She states that she felt fine after her CABG for several months however 3-4 months ago these about states his symptoms started occurring. She also states an 8-1/2 ago she had an angioplasty here during which she had injury to femoral artery. She denies diarrhea, constipation, abdominal pain, shortness of breath. All other ROS is negative except as stated here in the history of present illness In the ER workup showed chest x-ray that had no acute findings, EKG showed normal sinus rhythm with bradycardia, lab work is mostly unremarkable. She was given 162 mg of aspirin. Off note stress echo performed on November 2014 showed abnormal moderate risk test ischemia and PDA and a NSVT during physical activity. June 2016 stress test showed mildly abnormal mild reversible ischemia in the basal inferior wall and distal lateral wall. Patient used to be a smoker but quit several months ago. She has exposure to secondhand smoke. Patient is admitted to the [facility] team for ACS rule out. Hospital Course Acute assessments #1 chest pain: -- Telemonitoring [place] -- Home medications Imdur, nitroglycerin when necessary -- The medication metoprolol -- Daily aspirin --Oxygen as needed --Morphine 1 mg every 4 hours when necessary as needed for dyspnea --Patient is considered intermediate risk for ischemia , Stress test scheduled for tomorrow -- Trend troponins -- Hold beta lázaro and by mouth diet for tomorrow a.m. stress test -- Patient's stress test was read as mild to moderate, minimal area of infarct inferior laterally in the apex minimal abnormality (per call from radiology): Please see official report above -- Contacted patient's park warden Dr. Resendiz with these results, he feels that she can be followed up as outpatient in 1-2 months with one of his mid levels. He recommends that we increase her ongoing Imdur dosage to 120 mg daily : This is done #2 GERD: PO pantoprazole Chronic assessments #3 hypertension: Continue home medications Imdur, metoprolol #4 CAD: Continue home statin, add lisinopril #5 chronic pain: Continue home medication Tylenol No. 3, Flexeril CODE STATUS: Patient wants CPR but no intubation or ventilation Alternate decision-maker : Daughter IV. Hep locked DVT prophylaxis enoxaparin subcutaneous 40 mg daily Diet cardiac Exam Vital Signs (Last) Date Time Temp Pulse Resp B/P Pulse Ox O2 Delivery O2 Flow Rate FiO2 08/09/16 05:51 68 08/09/16 05:22 36.7 16 120/76 95 Room Air Exam Gen.: No acute distress HEENT normocephalic, atraumatic Heart: Regular rate and rhythm, no S3-S4 murmurs Lungs: Clear to auscultation no crackles or wheezes Abdomen: Soft nondistended Extremities: Negative for edema Psych: Negative Neurological: No focal deficits Test 08/07/16 15:38 08/07/16 16:52 08/07/16 22:40 08/08/16 03:30 Hemoglobin A1c 5.7% (4.8-5.6) Magnesium Level 2.2mg/dL (1.6-2.6) Hold Aranda Top Tube Received (Received) Hold Urine Received (Received) Pro-B-Type Natriuretic Peptide 400pg/mL (0-287) White Blood Count 6.0th/mm3 (3.8-10.1) Red Blood Count 3.58mil/mm3 (3.90-5.20) Hemoglobin 11.3g/dL (12.0-15.6) Hematocrit 33.6% (35.0-46.0) Mean Corpuscular Volume 93.9fL (81-100) Mean Corpuscular Hemoglobin 31.6pg (27.0-35.0) Mean Corpuscular Hemoglobin Concent 33.6% (32.0-37.0) Red Cell Distribution Width 18.6% (12.3-15.4) Platelet Count 320bil/L (150-400) Neutrophils (%) (Auto) 40.1% (40-74) Lymphocytes (%) (Auto) 45.9% (14-46) Monocytes (%) (Auto) 8.4% (4-12) Eosinophils (%) (Auto) 4.5% (0-5) Basophils (%) (Auto) 0.8% (0-3) Sodium Level 139mEq/L (134-144) Potassium Level 4.2mEq/L (3.5-5.2) Chloride Level 102mEq/L (97-108) Carbon Dioxide Level 22mmol/L (18-29) Blood Urea Nitrogen 14mg/dL (6-24) Creatinine 0.79mg/dL (0.57-1.00) Estimat Glomerular Filtration Rate 107mL/min (>59) Glucose Level 93mg/dL (60-99) Calcium Level 9.1mg/dL (8.5-10.1) Total Bilirubin 0.6mg/dL (0.0-1.2) Aspartate Amino Transf (AST/SGOT) 30U/L (0-50) Alanine Aminotransferase (ALT/SGPT) 25U/L (0-32) Alkaline Phosphatase 68U/L (25-165) Total Creatine Kinase 54U/L (21-215) Creatine Kinase MB 1.2ng/mL (0.0-5.3) Creatine Kinase MB % % (0.0-5.0) Troponin T < 0.010ug/L (0.0-0.011) Total Protein 6.9g/dL (6.4-8.4) Albumin 3.7g/dL (3.4-5.0) Triglycerides Level 203mg/dL (0-149) Cholesterol Level 168mg/dL (100-199) LDL Cholesterol, Calculated 80.400mg/dL (0-99) VLDL Cholesterol 40.600mg/dL HDL Cholesterol 47mg/dL (>39) Cholesterol/HDL Ratio 3.57 (0.0-4.4) Discharge Medications Discharge Medications Aspirin (Aspirin) 81 Mg Tablet 162 MG PO QAM (Reported) Atorvastatin Calcium (Atorvastatin Calcium) 40 Mg Tablet 80 MG PO HS (Reported) Fluticasone Propionate (Flovent HFA 220 mcg) 12 Gm Aer.w.adap 2 PUFFS INHALATION BID (Reported) Isosorbide MN ER (Isosorbide MN ER) 30 Mg Tab.er.24h 120 MG PO DAILY Prescribed by: VANESSA MAYFIELD DO Levothyroxine (Levothyroxine) 100 Mcg Tablet 100 MCG PO QAM (Reported) Liothyronine Sodium (Cytomel) 5 Mcg Tablet 5 MCG PO QAM (Reported) Metoprolol Tartrate (Metoprolol Tartrate) 25 Mg Tablet 12.5 MG PO BID (Reported ) Paroxetine (Paxil) 40 Mg Tablet 40 MG PO QAM (Reported) Tiotropium [place] (Spiriva) 18 Mcg Cap.w.dev 1 CAPSULE INHALATION QAM (Reported ) As needed Acetaminophen/Codeine 300-30mg (Tylenol/Codeine #3) 1 Each Tablet 1 TABLET PO QID PRN PRN For Pain (Reported) Albuterol HFA (Proair HFA) 8.5 Gm Hfa.aer.ad 2 PUFFS INHALATION QID PRN PRN For Shortness of Breath (Reported) Cyclobenzaprine (Cyclobenzaprine) 10 Mg Tablet 10 MG PO TID PRN PRN For Spasm ( Reported) Diazepam (Diazepam) 5 Mg Tablet 5 MG PO BID PRN PRN For Anxiety (Reported) Nitroglycerin SL (Nitroglycerin SL) 0.4 Mg Tab.subl 0.4 MG PO Q5MIN PRN PRN For Chest Pain (Reported) Followup Plan Follow-up plan F/U with patient's cardiology clinic w/ Dr. Darling in 1-2 months with one of his mid level providers. F/U with PCP in 2 weeks Discharge Diet: Low fat, Low Sodium, Heart Healthy Discharge Activity: No restrictions Patient Instructions Please note your Isosorbide mononitrate dose is increased to 120 mg. Vanessa Mayfield DO Aug 09, 2016 08:54
[2016-09-25] MEDS ORDERED: RANO500T3 PO (16:18)
[2016-09-25] MEDS ORDERED: ROSU40TA PO (16:18)
[2016-09-25] MEDS ORDERED: ISOS60TA2 PO (16:18)
== END 2016-08-09 11:40 | disposition home or self-care (01) ==
LOC: SED 14:48 → MPC 18:13
PROVIDERS: ADMIT Family Medicine; ATTEND Family Medicine
DX: I25.118 Atherosclerotic heart disease of native coronary artery with other forms of angina pectoris (principal); I10 Essential (primary) hypertension; Z87.891 Personal history of nicotine dependence; Z95.5 Presence of coronary angioplasty implant and graft; J45.909 Unspecified asthma, uncomplicated; G89.29 Other chronic pain; M54.9 Dorsalgia, unspecified
CPT/HCPCS: 36415; 71010; 78452; 80053; 80061; 82550; 82553; 83036; 83735; 83880; 84484; 85025; 93005; 93017; 99285; A9502; G0378; J0280; J1650; J2785

== ENCOUNTER 2016-09-30 05:32 | Day surgery (SDC) | payer MEDICARE, MEDICAID ==
--- NOTE | 2016-09-26 09:37 | PCM.ANEPRE ---
Anesthesia Pre-Op Review Reason for Review: CARDIAC HX;2-3 METS,HTN,S/P CABG 02/2015 W/ CONTINUED ANGINA Anesthesia Recommendations: Proceed with Procedure Additional Comments 61 yo F scheduled for left axillary excisional lymph alexander biopsy by Dr. Love. Past medical history notable for CAD s/p CABG 02/2015 with continued angina (including at rest). Reported METS 2-3. Diagnostic tests since CABG have included: 1) Stress Test (08/08/2016) 1) probably abnormal suggesting mild-mod severe fixed defect suspicious for infarct 2) no significant reversible defect to suggest myocardia ischemia 3) normal LV volume/function 4) severely limited exercise capacity with 3-4/190 chest pain at peak (failed to reach target and switched to Lexicscan) 5) Abnormal EKG 1-[address] depression and T-wave inversion in multiple leads compatible with ischemia 2) Echo (01/01/2016) with EF 60%, LVH, mild MR. 3) PFTs (02/2015) with possible airflow obstruction Cardiology Consult (08/21/2016) - Reviewed results of stress test, plan for secondary prevention no further workup. F/U 3 months. Note in chart NSQIP risk 0.2% for cardiac complication, 4.1% risk for serious complication ( above average for both). Patient seen by cardiology, no further workup indicated. Medical management. Proceed with procedure with appropriate PARQ with patient regarding risk of surgical intervention with her cardiac status. Roger Berman Chart Reviewed by: Jose Luis Correa MD September 26, 2016 09:37
[2016-09-30] VITALS (9 sets, daily range): BP systolic 103–165; BP diastolic 63–86; PULSE 58–67; RESP 11–18; O2SAT 94–100
[~2016-09-30] VITALS: Ht 162.6 cm; Wt 76.3 kg
[~2016-09-30 05:32] MED LIST changes: -ACET1TAB12 PO; -ATOR40TA69 PO; -ISOS30TA4 PO; +ISOS60TA2 PO; +Lactated Ringer's 1,000 ML IV ONE; +RANO500T3 PO; +ROSU40TA PO
[2016-09-30] MEDS ORDERED: Ondansetron 2 mg/mL 2 mL Inj ONE (05:33)
[2016-09-30] MEDS ORDERED: Ketamine 10 mg/mL 20 mL Inj ONE (05:33)
[2016-09-30] MEDS ORDERED: Dexamethasone 4 mg/mL Inj ONE (05:33)
[2016-09-30] MEDS ORDERED: fentaNYL-PF 50 mCg/mL 2 mL Inj ONE (05:33)
[2016-09-30] MEDS ORDERED: Propofol 10,000 mCg/mL 20 mL Inj ONE (05:33)
[2016-09-30] MEDS ORDERED: EPHEDrine/NS 5 mg/mL 5 mL Syringe ONE (05:33)
[2016-09-30] MEDS ORDERED: CeFAZolin Inj 2 GM in IV Premix 1 EACH IV SCH (06:00)
[2016-09-30] MEDS ORDERED: Lactated Ringer's 1,000 ML IV ONE (06:17)
[2016-09-30] MEDS ORDERED: Lactated Ringer's 1,000 ML IV SCH (07:23)
[2016-09-30] MEDS ORDERED: Lactated Ringer's 500 ML IV PRN (07:23)
--- NOTE | 2016-09-30 07:23 | PCM.HPANE ---
Patient Data Surgeon Admitting Provider: Attending Provider:Anthony Love MD Primary Care Physician:Adeel Carvalho MD Other Provider:Jagjit Godfrey Anesthesia Reason for Visit Left Axillary Lymphadenopathy Ht/WT & BMI Height (Feet): 5 Height (Inches): 4 Weight (Kilograms): 76.3 Body Mass Index 28.00 Allergies Coded Allergies: adhesive (Verified Allergy, Severe, PROBLEM W/ ADHESIVE ON SURGICAL DRAPE DURING 2010 SURGERY, 09/25/16) chlorhexidine (Verified Allergy, Severe, BURNING RASH, 09/30/16) Past Anesthesia History Anesthesia History: Denies:: Abnormal Airway, Anesthesia Reactions, Difficult Intubation, Fam Anesthesia Reaction, Fam Malignant Hypertherm, Malignant Hyperthermia Diabetes History Hx Diabetes?: No MRSA MRSA: No Medications Blood Thinner: Aspirin Hypertension Medication: Yes Home Meds Incl Beta Miles: Yes Date Beta Miles Taken: September 30, 2016 Time Beta Miles Taken: 429 Reported Medications Rosuvastatin Calcium (Crestor)40 Mg Lcdlbu05 Mg PO DAILY 30 Days Ref 0 09/25/16 Ranolazine ER (Ranexa)500 Mg Tablet.er500 Mg PO BID 09/25/16 Isosorbide MN ER 60 Mg Tab.er.24h60 Mg PO DAILY 09/25/16 Nitroglycerin SL 0.4 Mg Tab.subl0.4 Mg PO Q5MIN PRN For Chest Pain 06/25/16 Tiotropium [place] (Spiriva)18 Mcg Cap.w.dev1 Capsule INHALATION QAM 06/25/16 Cyclobenzaprine 10 Mg Tmadsl44 Mg PO TID PRN For Spasm 06/25/16 Metoprolol Tartrate 25 Mg Jdpdcu33.5 Mg PO BID 06/25/16 Fluticasone Propionate (Flovent HFA 220 mcg)12 Gm Aer.w.adap2 Puffs INHALATION BID 06/25/16 Albuterol HFA (Proair HFA)8.5 Gm Hfa.aer.ad2 Puffs INHALATION QID PRN For Shortness of Breath 12/20/14 Paroxetine (Paxil)40 Mg Xwhacj33 Mg PO QAM MOOD 12/20/14 Levothyroxine 100 Mcg Bzgqjf245 Mcg PO QAM For Thyroid Replacement 12/20/14 Diazepam 5 Mg Tablet5 Mg PO BID PRN For Anxiety 12/20/14 Liothyronine Sodium (Cytomel)5 Mcg Tablet5 Mcg PO QAM 12/20/14 Aspirin 81 Mg Hdrnqp36 Mg PO QAM 12/20/14 Discontinued Reported Medications Atorvastatin Calcium 40 Mg Dhjyeq73 Mg PO HS 06/25/16 Acetaminophen/Codeine 300-30mg (Tylenol/Codeine #3)1 Each Tablet1 Tablet PO QID PRN For Pain 12/20/14 Discontinued Scripts Isosorbide MN ER 30 Mg Tab.er.90o452 Mg PO DAILY 14 Days Prov:LoveLevVanessaneelima MORRISSEY 08/09/16 History History of ENT Problems?: Yes HEENT History: Positive for:: Glaucoma Sinus Problem (hx sinusitis/epistaxis) Denies:: Abnormal Airway Cataracts Difficult Intubation Dysphagia Denture Type: Full- Upper Full- Lower Teeth Condition: Within Normal Limits Hx of Heart Problems?: Yes Cardiovascular History: Positive for:: Cardiac Surgery (S/P CABG (2 VESSEL) ) Chest Pain (ANGINA; SOMETIMES @ REST; seen by cardiology-medical treatment only) Coronary Artery Disease Hypertension (HYPERLIPIDEMIA) Irregular Heartbeat (PT REPORTS PALPITATIONS (RARE PVC'S ON EKG)) Peripheral Vascular (S/P RPR PSEUDOANEURYSM RT FEMORAL ARTERY (?STENT?)) Denies:: Congestive Heart Failure Edema Heart Murmur (ECHO 12/2015 ) Pacemaker Thrombophlebitis Valvular Heart Disease Hx of Respiratory Problem?: Yes Respiratory History: Positive for:: Asthma COPD Cough Dyspnea Pneumonia (& BRONCHITIS) Use of Inhalers / NEBS Denies:: Chest Surgery Emphysema Hemoptysis Tuberculosis Use of C-PAP Machine Hx Neurologic Problems?: Yes Neurological History: Positive for:: Headaches Denies:: Alzheimer's Disease CVA Dementia Dizziness Parkinson's Disease Seizures Hx of GI Problems?: No Hx of Problems?: No Female Hx: Denies:: Currently Endometriosis Pelvic Inflammatory Problems with Breasts? Skin History: Denies:: History Skin Disorders? Pressure Ulcers Hx Musculoskeletal Problems?: Yes Musculoskeletal History: Positive for:: Back Injury (CHRONIC NECK/BACK PAIN S/P SPINE SURGERY X6) Fibromyalgia Musculoskeletal Trauma (HX CLOSED FX SCAPHOID,WRIST) Osteoarthritis Denies:: Joint Replacement Hx of Psycho/Social Problems?: Yes Psycho Social History: Positive for:: Anxiety Hx Depression Denies:: Bipolar Disorder Suicide Attempt Hx Surgeries?: Yes (LAMI L5S1, FUSION,SCREW REMOVAL-BACK,SCAPHOID EXC LT HAND, BTL) Hx Any Other Health Problems?: Yes Other History: Positive for:: Hospitalization (cp) Thyroid Disease Denies:: Cancer Endocrine Disease History Blood Transfusions: Positive for:: Blood Transfusions Denies:: Blood Transfuse Reaction Hx Diabetes: No Other Pertinent History: LT AXILLARY ADENOPATHY=CURRENT PROBLEM Hx Alcohol Use: No (RARE)Hx Substance Use: No Smoking Status: Former Smoker Have You Smoked inLast 12 mo: YesApprox How Many Cigarettes/day: 1/2 PPD Stop/Bang S-Snoring: Do You Snore Loudly: No T-Tired: feel tired, fatigued: Yes O-Obsered: Observed not breath: No P-Blood Pressure: treated: Yes B- Body Mass Index > 35 kg/m2: No A- Age over 50: Yes N- Neck Large Circumference: No G- Gender Male: No ANNE Total Score: 3 ANNE Risk Assessment: High Risk, =/>3 Yes ANNE Category 4 OutPt Procedure: Yes Risk Assessment Category Category 1A: Patient has history of documented sleep apnea, and HAS NOT received any narcotic, sedative or anesthesia administration during this stay. Category 1B: Patient has history of documented sleep apnea, and HAS received any narcotic , sedative or anesthesia administration during this stay Category 2: Patient has SUSPECTED Obstructive Sleep Apnea, and HAS received any narcotic , sedative or anesthesia administration during this stay. Category 3: Patient has SUSPECTED Obstructive Sleep Apnea and HAS NOT received narcotic, sedative or anesthesia administration during this stay. Category 4: Outpatient in Procedural Areas with known sleep apnea or who screen positive for High Risk via the STOP/BANG questionnaire. Exam Exam Vital Signs Vital Signs Date Time Temp Pulse Resp B/P Pulse Ox O2 Delivery O2 Flow Rate FiO2 09/30/16 06:06 36.0 62 18 118/67 95 Room Air General Appearance: Alert, Oriented X3, Cooperative, No Acute Distress HEENT/AIRWAY: MP 2 Lungs: Clear to Auscultation, Normal Air Movement Heart: Exam Unremarkable, Regular Rate/Rhythm, No Murmurs/Rubs/Gallops Meds/Labs/Diagnostics Admission Meds Current Medications Lactated Ringer's (Lr) 1,000 ml @ ud STK-MED ONCE IV Last administered on 09/30t 06:17; Start 09/30/16 at 06:17; Stop 09/30/16 at 06:18; Status DC Plan Impression Patient chart reviewed, patient interviewed and anesthestic plan with risks, benefits, and alternatives discussed, and informed consent obtained. ASA Physical Status: ASA3 Severe Disease (chronic stable angina) Anesthetic Plan: GA Bene/Risks/Altern/Consents: Yes HP Complete Prior to Induction: Yes Isaruo Lawson MD September 30, 2016 07:22
[2016-09-30] MEDS ORDERED: HYDROmorphone 1 mg/mL Inj IVPUSH PRN (07:25)
[2016-09-30] MEDS ORDERED: fentaNYL-PF 50 mCg/mL 2 mL Inj IVPUSH PRN (07:25)
[2016-09-30] MEDS ORDERED: Ondansetron 2 mg/mL 2 mL Inj IVPUSH PRN (07:25)
[2016-09-30] MEDS ORDERED: MetoCLOpramide 5 mg/mL 2 mL Inj IVPUSH PRN (07:25)
[2016-09-30] MEDS ORDERED: Dexamethasone 4 mg/mL Inj IVPUSH PRN (07:25)
[2016-09-30] MEDS ORDERED: Phenylephrine 10,000 mCg/mL Inj IVPUSH PRN (07:25)
[2016-09-30] MEDS ORDERED: EPHEDrine Sulfate 50 mg/mL Inj IVPUSH PRN (07:25)
[2016-09-30] MEDS ORDERED: Bupivacaine-MPF 0.5% 30 mL Inj INFILTRATE ONE (08:01)
--- NOTE | 2016-09-30 08:28 | PCM.DISURG ---
Surgical Discharge Instruction Date of Service September 30, 2016 Dates of Hospitalization Date of Hospital Admission Providers Admitting Physician: Primary Care Physician: Adeel Carvalho MD Attending Physician: Anthony Love MD Discharge Diagnosis Discharge Diagnosis Axillary lymphadenopathy Diet Discharge Diet: No restrictions Activity Discharge Activity-General: No restrictions Dressing and Incisional Care Dressing Care: Allow Steri Stripes to fall off, Remove outer dressing after 24 hrs Hygiene: May shower after (24 hours) Follow Up Plan Follow Up Plan With Dr. Love in 1 week Call your provider for: Fever (over 101.5), Discharge @ incision, pus discharge Anthony Love MD September 30, 2016 08:28
[2016-09-30] MEDS ORDERED: HYDROcodone-APAP 5-325 mg Tablet PO PRN (08:30)
--- NOTE | 2016-09-30 08:35 | PCM.SURGOP ---
Surgical Operative Report Date of Service: September 30, 2016 Pre Operative Diagnosis Left axillary lymphadenopathy Post Operative Diagnosis Same Procedure: Left axillary excisional lymph node biopsy Surgeon and Instrument Tester: Surgeon: Anthony Love MD Assistants: Clifford Hobson PA-C Indication for Procedure 61-year-old woman who was incidentally noted on a nuclear medicine scan of the heart to have abnormal uptake in the left axilla. She had bilateral diagnostic mammograms and a left axillary ultrasound. There were no breast masses. In the left axilla, there were morphologically normal lymph nodes, but the largest measured 1.8 x 2.9 cm. She had symptoms of chronic fatigue and lethargy. After discussion of risks and benefits, she agreed to proceed with left axillary excisional lymph node biopsy. Findings: There were multiple slightly rubbery lymph nodes. The first excised node was bisected, and it had yellowish material, and no normal lymphoid tissue. For that reason, a second lymph node was excised, and grossly it looked normal, but again, when bisected, it had no normal lymphoid tissue. Both were sent for flow cytometry as well as permanent pathology. Procedure Details After smooth induction of general anesthesia with an LMA, she was placed in the supine position with the left arm out, and was prepped and draped in wide sterile fashion. A procedural pause was performed according to the SCOAP checklist, and all were found to be in agreement. A transverse incision was made in the left axilla. Dissection was carried down through the subcutaneous tissue until the axillary fascia was incised, and the axilla was explored. Initially, there were several normal sized but slightly rubbery lymph nodes. Deeper dissection just inferior to the left axillary vein revealed multiple enlarged and slightly rubbery lymph nodes. The first lymph node was excised from the surrounding soft tissue with electrocautery. Ex vivo , it measured 2.5 x 1.5 cm. It was bisected sharply in order to send some of it for flow cytometry, and surprisingly, there was no visible normal lymphoid tissue, but yellowish white material. It was sent for flow cytometry and permanent pathology. Because I wanted to make sure that I hadn't inadvertently removed a small lipoma, I elected to excise a second lymph node which was a similar size, slightly rubbery, slightly enlarged. It was excised from the surrounding soft tissue, again just inferior to the left axillary vein. Ex vivo , and measured 2.5 x 1.8 cm. Again, externally, it looks like a normal lymph node. Once it was bisected, no normal lymphoid tissue was visualized. Again, it was sent for flow cytometry as well as permanent pathology. Hemostasis was adequate. The axillary fascia was closed with an interrupted 3-0 Vicryl suture. The skin incision was closed with a running 4-0 Vicryl subcuticular stitch. Steri-Strips and sterile dressings were applied. At the end of the case all needle and sponge counts were correct 2. The patient was awakened from anesthesia without difficulty, and taken to the recovery room in satisfactory condition, having tolerated the procedure well. Complications There were no periprocedural complications identified. Surgical Specimen Removed: Yes Specimen sent to Pathology: Yes Surgical Specimen description: Left axillary lymph node #1 for flow cytometry and permanent pathology. Left axillary lymph node #2 for flow cytometry and permanent pathology. Anesthetic Plan: GA Grafts, Implants: None Output, Estimated Blood Loss: 10 Blood Administration during lockhart: No Drains: None Catheters: None copies to: Adeel Carvalho MD, Joshua D MD September 30, 2016 08:35
--- NOTE | 2016-09-30 10:07 | PCM.ANEP1 ---
Post Anesthesia PACU Phase 1 Assessment Vital Signs Vital Signs Date Time Temp Pulse Resp B/P Pulse Ox O2 Delivery O2 Flow Rate FiO2 09/30/16 09:50 59 16 103/66 96 Room Air 09/30/16 09:15 36.3 58 16 107/67 96 Room Air 09/30/16 09:00 61 14 107/63 94 Room Air 09/30/16 08:55 35.9 60 11 140/73 95 Room Air 09/30/16 08:50 60 14 139/66 100 Room Air 09/30/16 08:45 61 16 145/75 100 Simple Mask 8 09/30/16 08:40 61 18 164/86 100 Simple Mask 8 09/30/16 08:38 36.5 67 18 165/81 97 Simple Mask 8 09/30/16 06:06 36.0 62 18 118/67 95 Room Air Anesthetic Administered: GA Level of Alertness: Awake, talking TAPIA's with Equal Strength: Yes Pain: No Nausea or Vomiting: No CV Function & Hydration Stable: Yes Airway Device: Oxygen Delivery: Simple Mask Lungs: Clear to Auscultation, Normal Air Movement Dermatome Level: Full Sensation PACU Phase 2 Assessment Complications: No Follow up Care: No Patient Instructions Provided: Yes Isauro Lawson MD September 30, 2016 10:07
--- NOTE | 2016-10-02 11:14 | PATH ---
SURGICAL PATHOLOGY Attending Physician:Claudia Moreno CASE STATUS: Signed Out PATIENT NAME: MIKE SAUNDERS PID: [id number] : 1955 DATE COLLECTED:09/30/2016 15:27 SPECIMEN: 1: Lymph Node, Biopsy 2: Lymph Node, Biopsy CLINICAL HISTORY: 1. LEFT AXILLARY, LYMPH NODE 2. LEFT AXILLARY, LYMPH NODE FINAL DIAGNOSIS: 1.LEFT AXILLARY LYMPH NODE: BENIGN LYMPH NODE WITH PROMINENT FATTY REPLACEMENT. NODE MEASURES 3.2 X 2.1 X 0.8 CM. 2.LEFT AXILLARY LYMPH NODE: BENIGN LYMPH NODE WITH PROMIINENT FATTY REPLACEMENT. LYMPH NODE MEASURES 2.7 X 1.5 X 1.2 CM. ICD10 R59.0 GROSS DESCRIPTION: The specimens are received in formalin, labeled with the patient's name, and sublabeled as the following: (1) left axillary lymph nodes; (2) left axillary node, lymph. (1) The specimen consists of a lymph node (3.2 x 2.1 x 0.6 cm). Section code: (1A-1E) one lymph node, serially sectioned. Specimen entirely submitted. (2) The specimen consists of a lymph node (2.7 x 1.5 x 1.2 cm) received in 2 pieces. Section code: (2A-2D) one lymph node, serially sectioned. Specimen entirely submitted. 10/01/16 MICRO DESCRIPTION: See diagnosis. ICD-9 CODES: CPT CODES: 1: 43325 2: 49538 Electronically Signed Out Demarcus Fraga MD [facility] [address], [place] [address] Technical component performed at [facility], [address], [place], [address]
== END 2016-09-30 23:59 | disposition home or self-care (01) ==
LOC: SAS 05:32
PROVIDERS: ATTEND Student in an Organized Health Care Education/Training Program
DX: R59.0 Localized enlarged lymph nodes (principal); I25.10 Atherosclerotic heart disease of native coronary artery without angina pectoris; I10 Essential (primary) hypertension; E78.5 Hyperlipidemia, unspecified; M79.7 Fibromyalgia; J45.909 Unspecified asthma, uncomplicated; M19.90 Unspecified osteoarthritis, unspecified site; F41.8 Other specified anxiety disorders; E78.00 Pure hypercholesterolemia, unspecified; Z87.891 Personal history of nicotine dependence; Z79.82 Long term (current) use of aspirin; Z95.1 Presence of aortocoronary bypass graft
CPT/HCPCS: 38525; 88305; J0690; J1100; J2405; J3010; J7120